=== PATIENT | male | born 1945 | race Caucasian/White ===

== ENCOUNTER → 2022-11-28 | Outpatient (CLI) | payer MEDICARE, OTHER, SELFPAY ==
--- NOTE | 2022-11-28 14:09 | RAD_ITS ---
EXAM: XR LEFT HAND COMPLETE, 3 OR MORE VIEWS CLINICAL INDICATION: Inflammatory polyarthropathy TECHNIQUE: Frontal, lateral and oblique views of the left hand. COMPARISON: No relevant prior studies available. FINDINGS: BONES/JOINTS: No acute fracture or subluxation. Mild narrowing of the interphalangeal joints. Moderate narrowing of the third MCP joint. Prominent narrowing of the navicular multinodular joint. Small periarticular erosions noted to involve the proximal portion of the second metacarpal, radial styloid process and several carpal bones. SOFT TISSUES: Normal. No soft tissue swelling or gas. No radiopaque foreign body. RAD/Hand Min 3 Views IMPRESSION: Arthritic changes as described some of which may be inflammatory in nature. Electronically Signed: Saurabh Miles MD at 16:54 EDT ,
--- NOTE | 2022-11-28 14:09 | RAD_ITS ---
EXAM: XR RIGHT SHOULDER COMPLETE, 2 OR MORE VIEWS CLINICAL INDICATION: Inflammatory polyarthropathy TECHNIQUE: Two or more views of the right shoulder. COMPARISON: No relevant prior studies available. FINDINGS: BONES/JOINTS: Pseudoarticulation of the humerus with the undersurface of the acromion. 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 No definite erosive changes are identified. Degenerative changes in the spine. No acute fracture. No subluxation. Normal alignment. No sclerotic or destructive changes observed. SOFT TISSUES: No significant abnormality. No soft tissue swelling or gas. No radiopaque foreign body. RAD/Shoulder min 2 Views IMPRESSION: 1. Likely chronic rotator cuff tendon tear. 2. 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 No definite erosive changes are identified. Electronically Signed: Jayson Cano DO at 23:22 EDT ,
--- NOTE | 2022-11-28 14:09 | RAD_ITS ---
EXAM: XR LEFT SHOULDER COMPLETE, 2 OR MORE VIEWS CLINICAL INDICATION: Inflammatory polyarthropathy TECHNIQUE: Two or more views of the left shoulder. COMPARISON: No relevant prior studies available. FINDINGS: BONES/JOINTS: The glenoid appears to sit articulating with the undersurface of the acromion. 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 Possible subacromial erosions and possible glenoid erosions. Hypertrophic changes at the margins of the humeral head articular surface and at the acromioclavicular joint and glenoid. Degenerative changes partially visualized in the spine. No acute fracture. No subluxation. Normal alignment. SOFT TISSUES: No significant abnormality. No soft tissue swelling or gas. No radiopaque foreign body. RAD/Shoulder min 2 Views IMPRESSION: 1. Likely chronic rotator cuff tendon tear. 2. Predominantly proliferative degenerative changes. Possible erosions versus subcortical cysts. Electronically Signed: Jayson Cano DO at 22:06 EDT ,
--- NOTE | 2022-11-28 14:18 | RAD_ITS ---
EXAM: XR RIGHT HAND COMPLETE, 3 OR MORE VIEWS CLINICAL INDICATION: Inflammatory polyarthropathy TECHNIQUE: Frontal, lateral and oblique views of the right hand. COMPARISON: No relevant prior studies available. FINDINGS: BONES/JOINTS: There is no evidence of an acute fracture or dislocation. Diffuse carpometacarpal, metacarpophalangeal, and interphalangeal joint arthrosis, worse at the third metacarpophalangeal joint where there is osseous proliferative changes and significant joint space narrowing. Moderate degenerative changes at the radial aspect of the carpus and at the distal radioulnar joint. No distinct erosive changes are identified. No sclerotic or destructive changes observed. SOFT TISSUES: No significant abnormality. No soft tissue swelling or gas. No radiopaque foreign body. RAD/Hand Min 3 Views IMPRESSION: Extensive arthritic changes worse at the basal joint of the thumb and at the third metacarpophalangeal joint. No definite erosive changes. Electronically Signed: Jayson Cano DO at 21:52 EDT ,
[2022-11-28 15:24] LABS: Absolute Lymphocyte Count 1.79 X10^3/uL (0.83-4.51); Absolute Neutrophil Count 4.8 X10^3/uL (2.0-7.7); Basophil# 0.03 X10^3/uL; Basophil% 0.4 % (0-1); Eosinophil# 0.23 X10^3/uL; Eosinophils% 3.1 % (0-5); Hematocrit 43.4 % (40-54); Hemoglobin 14.5 g/dL (13.0-16.5); Lymphocyte # 1.79 X10^3/ul (0.83-4.51); Lymphocyte % 24.4 % (19-41); Mean Corp Hgb Conc 33.4 g/dL (32-36); Mean Corpuscular Volume 101.6 fL (80-94); Mean Platelet Vol. 10.1 fl (6.2-12.0); Monocyte# 0.48 X10^3/uL; Monocyte% 6.5 % (0-10); NRBC Flagged by Analyzer 0 % (0-5); Neutrophil # 4.79 X10^3/uL (2.7-7.7); Neutrophil % 65.5 % (47-70); Platelet Count 202 K/mm3 (150-450); RBC Distribution Width CV 14.2 % (11.6-14.6); RBC Distribution Width SD 53.4 fl (35.1-43.9); Red Blood Count 4.27 M/mm3 (4.6-6.2); White Blood Count 7.3 K/mm3 (4.4-11.0)
[2022-11-28 15:37] LABS: Erythrocyte Sedimentation Rate 43 mm/hr (0-20)
[2022-11-28 16:06] LABS: CRP < 2.90 mg/L (0.0-3.0)
[2022-11-28 16:46] LABS: Hepatitis B Surface Antibody Non-Reactive; Hepatitis B Surface Antigen Non-Reactive (Nonreactive); Hepatitis C Antibody Non-Reactive (Nonreactive)
[2022-11-29 14:03] LABS: ALB/GLOB Ratio 0.8 RATIO (0.9-2.4); AST(SGOT) 25 U/L (15-37); Alanine Aminotransfer ALT/SGPT 23 U/L (16-61); Albumin, Serum 3.5 g/dL (3.2-5.0); Alkaline Phosphatase 73 U/L (45-117); Anion Gap 7 (5-15); BUN 16 mg/dL (7-18); BUN/Creat Ratio 19.3 RATIO (10-20); Calcium,Total 9.1 mg/dL (8.5-10.1); Chloride 105 mmol/L (98-107); Creatinine, Serum 0.83 mg/dL (0.70-1.30); EST Glomerular Filtration Rate 96 mL/min (>60); Est Glom Filt Rate - Afr Amer 116 mL/min (>60); Globulin 4.2 g/dL (2.2-4.2); Glucose 92 mg/dL (74-106); Potassium 4.1 mmol/L (3.5-5.1); Protein, Total 7.7 g/dL (6.4-8.2); Sodium Level 139 mmol/L (136-145)
[2022-11-30 12:08] LABS: CCP IgG Antibodies 28 units (0-19)
[2022-11-30 13:07] LABS: ANTINUCLEAR ANTIBODIES DIRECT Negative (Negative)
== END | disposition home or self-care (01) ==
PROVIDERS: PCP Nurse Practitioner Adult Health; Referring Provider Internal Medicine Rheumatology; Visit Provider Internal Medicine Rheumatology
DX: M06.4 Inflammatory polyarthropathy (principal); M79.7 Fibromyalgia
CPT/HCPCS: 36415; 73030; 73130; 80053; 85025; 85652; 86038; 86140; 86200; 86431; 86706; 86803; 87340

== ENCOUNTER → 2023-02-11 | Outpatient (CLI) | payer MEDICARE, OTHER, SELFPAY ==
[2023-02-11 15:45] LABS: Absolute Lymphocyte Count 1.83 X10^3/uL (0.83-4.51); Absolute Neutrophil Count 5.3 X10^3/uL (2.0-7.7); Basophil# 0.04 X10^3/uL; Basophil% 0.5 % (0-1); Eosinophils% 3.8 % (0-5); Hematocrit 43.2 % (40-54); Hemoglobin 13.8 g/dL (13.0-16.5); Lymphocyte # 1.83 X10^3/ul (0.83-4.51); Mean Corp Hgb Conc 31.9 g/dL (32-36); Mean Corpuscular Hgb 33.9 pg (27.0-32.0); Mean Corpuscular Volume 106.1 fL (80-94); Mean Platelet Vol. 10.9 fl (6.2-12.0); Monocyte# 0.51 X10^3/uL; Monocyte% 6.4 % (0-10); NRBC Flagged by Analyzer 0 % (0-5); Neutrophil # 5.25 X10^3/uL (2.7-7.7); Platelet Count 203 K/mm3 (150-450); RBC Distribution Width CV 14.9 % (11.6-14.6); RBC Distribution Width SD 58.4 fl (35.1-43.9); Red Blood Count 4.07 M/mm3 (4.6-6.2)
[2023-02-11 16:10] LABS: ALB/GLOB Ratio 0.7 RATIO (0.9-2.4); AST(SGOT) 28 U/L (15-37); Alanine Aminotransfer ALT/SGPT 21 U/L (16-61); Albumin, Serum 3.2 g/dL (3.2-5.0); Alkaline Phosphatase 82 U/L (45-117); Anion Gap 3 (5-15); BUN 21 mg/dL (7-18); Calcium,Total 9.3 mg/dL (8.5-10.1); Chloride 104 mmol/L (98-107); Creatinine, Serum 0.95 mg/dL (0.70-1.30); EST Glomerular Filtration Rate 81 mL/min (>60); Est Glom Filt Rate - Afr Amer 99 mL/min (>60); Globulin 4.3 g/dL (2.2-4.2); Glucose 94 mg/dL (74-106); Potassium 4.1 mmol/L (3.5-5.1); Protein, Total 7.5 g/dL (6.4-8.2); Sodium Level 140 mmol/L (136-145)
== END | disposition home or self-care (01) ==
PROVIDERS: PCP Nurse Practitioner Adult Health; Referring Provider Internal Medicine Rheumatology; Visit Provider Internal Medicine Rheumatology
DX: M05.79 Rheumatoid arthritis with rheumatoid factor of multiple sites without organ or systems involvement (principal); M79.7 Fibromyalgia; Z79.899 Other long term (current) drug therapy
CPT/HCPCS: 36415; 80053; 85025

== ENCOUNTER → 2023-04-04 | Outpatient (CLI) | payer MEDICARE, OTHER, SELFPAY ==
--- OUTSIDE RECORDS SUMMARY | 2023-04-04 11:50 | XMS RPT_ITS | CCD ---
Author Name Unknown Address [address] [place] [address] Organization [facility] Care Team Providers Care Applications Packager Name Role Phone Erica Saldaña PA-C Unavailable Pablo Penaloza Unavailable Unavailable PROVIDER, UNKNOWN Unavailable Unavailable Destiny Lerner Unavailable Unavailable Robert HOT DIP TINNING SUPERVISOR.Mirella ARAUJO Primary Care Provider Robert HOT DIP TINNING SUPERVISOR.Mirella ARAUJO Primary Care Provider Robert HOT DIP TINNING SUPERVISOR.Mirella ARAUJO Primary Care Provider Jl Jiménez MD Unavailable Nik Kam Unavailable Reuben Cooper Unavailable Hayden Siegel Unavailable Jl Jiménez MD Unavailable [phone] Nik Kam Unavailable Reuben Cooper Unavailable Hayden Siegel Unavailable MIRELLA JONES Primary Care Unavailable MIRELLA JONES M Attending Unavailable GHAZALA JONESE M Primary Care Unavailable GHAZALA JONESE M Referring Unavailable GHAZALA JONESE M Primary Care Unavailable GHAZALA JONESE M Referring Unavailable GHAZALA JONESE M Primary Care Unavailable MIRELLA JONES M Attending Unavailable PROVIDER, UNKNOWN Primary Care Unavailable AARON CHAIDEZ Referring Unavailab le PROVIDER, UNKNOWN Primary Care Unavailable AARON CHAIDEZ Referring Unavailab le MIRELLA JONES Primary Care Unavailable PAM MATTA Referring Unavailable PAM MATTA Attending Unavailable GHAZALA JONESE Warren Primary Care Unavailable MIRELLA JONES Primary Care Unavailable ROBERT MIRELLA Warren Primary Care Unavailable AARON CHAIDEZ Referring Unavailab YUDI Garcia Attending Unavailable MIRELLA JONES Primary Care Unavailable AARON CHAIDEZ Referring Unavailab MIRELLA Tesfaye Primary Care Unavailable AARON CHAIDEZ Attending Unavailab MIRELLA Tesfaye Referring Unavailable Medications Current Medications Medication Drug Class(es) Dates Sig (Normalized) Sig (Original) perflutren lipid microspheres 1.3 mL in NaCl (PF) 0.9% 10 mL injection (DEFINITY) (4 sources) Start: 10-24-2022 End: 01-23-2024 perflutren lipid microspheres 1.3 mL in NaCl (PF) 0.9% 10 mL injection (DEFINITY) 125 ml sodium chloride 9 mg/ml prefilled syringe (4 sources) Start: 10-24-2022 End: 01-23-2024 sodium chloride 0.9 % (flush) 10 mL (BD POSIFLUSH) Completed/Discontinued Medications Medication Drug Class(es) Dates Sig (Normalized) Sig (Original) acetaminophen 325 mg oral tablet (20 sources) take 1-2 tablets by mouth every six hours as needed acetaminophen (TYLENOL) 325 mg tablet 1-2 Tablet Every 6 hours as needed Oral PRN 0 Active Problems Active Problems Problem Classification Problem Date Documented Date Episodic/Chronic Allergic reactions (3 sources) Environmental allergy; Translations: [Other allergy status, other than to drugs and biological substances] Episodic Chronic obstructive pulmonary disease and bronchiectasis (3 sources) Mucopurulent chronic bronchitis; Translations: [Chronic obstructive pulmonary disease, unspecified] Onset: 06-26-2022 06-26-2022 Chronic Hyperplasia of prostate (20 sources) Benign prostatic hyperplasia; Translations: [Benign prostatic hyperplasia without lower urinary tract symptoms] Onset: 06-14-2014 Chronic Nonspecific chest pain (9 sources) Chest discomfort; Translations: [Other chest pain] Onset: 11-09-2022 10-24-2022 Episodic Osteoarthritis (20 sources) Osteoarthritis of hip; Translations: [Osteoarthritis] Onset: 10-26-2015 10-26-2015 Chronic Other connective tissue disease (1 source) Presence of left artificial hip joint; Translations: [Presence of left artificial hip joint] Onset: 10-26-2015 10-26-2015 Chronic Other connective tissue disease (20 sources) Fibromyalgia; Translations: [Fibromyalgia] 06-14-2014 Episodic Other lower respiratory disease (7 sources) Dyspnea on exertion; Translations: [Other forms of dyspnea] Onset: 12-07-2022 10-24-2022 Episodic Other lower respiratory disease (2 sources) Other forms of dyspnea; Translations: [MARRERO (dyspnea on exertion)] Onset: 11-09-2022 Episodic Other nervous system disorders (20 sources) Walking difficulty due to lower leg; Translations: [Difficulty in walking, not elsewhere classified] Onset: 09-17-2017 09-17-2017 Chronic Other nutritional; endocrine; and metabolic disorders (20 sources) Morbid obesity; Translations: [Morbid (severe) obesity due to excess calories] Onset: 01-27-2015 01-27-2015 Chronic Other nutritional; endocrine; and metabolic disorders (20 sources) Body mass index 40+ - severely obese; Translations: [Morbid (severe) obesity due to excess calories] Onset: 11-05-2017 11-05-2017 Chronic Other nutritional; endocrine; and metabolic disorders (1 source) Morbid (severe) obesity due to excess calories; Translations: [Morbid obesity with BMI of 40.0-44.9, adult ([facility])] Onset: 06-26-2022 Chronic Other nutritional; endocrine; and metabolic disorders (1 source) Body mass index (BMI) 40.0-44.9, adult; Translations: [Morbid obesity with BMI of 40.0-44.9, adult ([facility])] Onset: 06-26-2022 Chronic Spondylosis; intervertebral disc disorders; other back problems (20 sources) Degeneration of lumbar intervertebral disc; Translations: [Other intervertebral disc degeneration, lumbar region] Onset: 07-20-2014 08-19-2017 Chronic Unclassified (2 sources) Carpal tunnel syndrome, bilateral upper limbs; Translations: [Carpal tunnel syndrome, bilateral upper limbs] Onset: 10-28-2017 Past or Other Problems Problem Classification Problem Date Documented Da te Episodic/Chronic Chronic obstructive pulmonary disease and bronchiectasis (2 sources) Bronchitis; Translations: [Bronchitis, not specified as acute or chronic] Onset: 06-12-2022 Episodic Other connective tissue disease (20 sources) Muscle weakness; Translations: [Muscle weakness (generalized)] Onset: 09-17-2017 09-17-2017 Episodic Other connective tissue disease (20 sources) Abnormal posture; Translations: [Abnormal posture] Onset: 09-17-2017 09-17-2017 Episodic Other lower respiratory disease (1 source) Shortness of breath; Translations: [SOB (shortness of breath)] Onset: 06-26-2022 Episodic Other screening for suspected conditions (not mental disorders or infectious disease) (20 sources) Patient encounter status; Translations: [Encounter for screening for malignant neoplasm of colon] Onset: 11-15-2017 11-15-2017 Episodic Spondylosis; intervertebral disc disorders; other back problems (20 sources) Radiculopathy, cervical region; Translations: [Low back pain] Onset: 07-20-2014 08-19-2017 Episodic Unclassified (1 source) History of operative procedure on knee; Translations: [Presence of artificial knee joint, bilateral] Onset: 10-26-2015 10-26-2015 Episodic Unclassified (1 source) Problem Results Test Name Value Interpretation Reference Range Facil ity Vital Signs Date Time Vital Sign Value Performing Clinician Facility 12-07-2022 10:27-0400 Body height 177.8 cm Yudi Sterling APRN.CNP Work Phone: [facility] 12-07-2022 10:27-0400 Body weight 131.54 kg Yudi Sterling APRN.CNP Work Phone: [facility] 12-07-2022 10:27-0400 Diastolic blood pressure 58 mm[Hg] Yudi Sterling APRN.CNP Work Phone: [facility] 12-07-2022 10:27-0400 Heart rate 59 /min Yudi Sterling APRN.CNP Work Phone: [facility] 12-07-2022 10:27-0400 SaO2% (BldA) [Mass fraction] 97 % Yudi Sterlnig APRN.CNP Work Phone: [facility] 12-07-2022 10:27-0400 Systolic blood pressure 104 mm[Hg] Yudi Sterling APRN.CNP Work Phone: [facility] 10-24-2022 11:10-0400 Body height 174 cm Aaron Chaidez DO Work Phone: [facility] 10-24-2022 11:10-0400 Body weight 133.81 kg Aaron Chaidez DO Work Phone: [facility] 10-24-2022 11:10-0400 Diastolic blood pressure 62 mm[Hg] Aaron Chaidez DO Work Phone: [facility] 10-24-2022 11:10-0400 Heart rate 63 /min Aaron Chaidez DO Work Phone: [facility] 10-24-2022 11:10-0400 SaO2% (BldA) [Mass fraction] 93 % Aaron Chaidez DO Work Phone: [facility] 10-24-2022 11:10-0400 Systolic blood pressure 120 mm[Hg] Aaron Chaidez DO Work Phone: [facility] 06-12-2022 08:41-0400 Body height 177.8 cm Mirella Robert HOT DIP TINNING SUPERVISOR.MALL PLANT CARETAKER Work Phone: [facility] 06-12-2022 08:41-0400 Body temperature 97.5 [degF] Mirella Robert HOT DIP TINNING SUPERVISOR.[employer] PLANT CARETAKER Work Phone: [facility] 06-12-2022 08:41-0400 Body weight 134.26 kg Mirella Robert HOT DIP TINNING SUPERVISOR.[employer] CARETAKER Work Phone: [facility] 06-12-2022 08:41-0400 Diastolic blood pressure 78 mm[Hg] Mirella Robert HOT DIP TINNING SUPERVISOR.[employer] PLANT CARETAKER Work Phone: [facility] 06-12-2022 08:41-0400 Heart rate 73 /min Mirella Robert HOT DIP TINNING SUPERVISOR.[employer] PLANT CARETAKER Work Phone: [facility] 06-12-2022 08:41-0400 Respiratory rate 18 /min Mirella Robert HOT DIP TINNING SUPERVISOR.[employer] CARETAKER Work Phone: [facility] 06-12-2022 08:41-0400 SaO2% (BldA) [Mass fraction] 98 % Mirella Robert HOT DIP TINNING SUPERVISOR.M[employer] PLANT CARETAKER Work Phone: [facility] 06-12-2022 08:41-0400 Systolic blood pressure 122 mm[Hg] Mirella Robert HOT DIP TINNING SUPERVISOR.M[employer] PLANT CARETAKER Work Phone: [facility] 04-03-2022 08:16-0500 Body height 177.8 cm Mirella Robert HOT DIP TINNING SUPERVISOR.[employer] CARETAKER Work Phone: [facility] 04-03-2022 08:16-0500 Body temperature 98.2 [degF] Mirella Robert HOT DIP TINNING SUPERVISOR.M[employer] PLANT CARETAKER Work Phone: [facility] 04-03-2022 08:16-0500 Body weight 135.08 kg Mirella Robert HOT DIP TINNING SUPERVISOR.[employer] PL[employer] CARETAKER Work Phone: [facility] 04-03-2022 08:16-0500 Diastolic blood pressure 80 mm[Hg] Mirella Robert HOT DIP TINNING SUPERVISOR.M[employer] PL[employer] CARETAKER Work Phone: [facility] 04-03-2022 08:16-0500 Heart rate 97 /min Mirella Robert HOT DIP TINNING SUPERVISOR.M[employer] PL[employer] CARETAKER Work Phone: [facility] 04-03-2022 08:16-0500 Respiratory rate 18 /min Mirella Robert HOT DIP TINNING SUPERVISOR.M[employer] PLANT CARETAKER Work Phone: [facility] 04-03-2022 08:16-0500 SaO2% (BldA) [Mass fraction] 98 % Mirella Robert HOT DIP TINNING SUPERVISOR.M[employer] PLANT CARETAKER Work Phone: [facility] 04-03-2022 08:16-0500 Systolic blood pressure 120 mm[Hg] Mirella Robert HOT DIP TINNING SUPERVISOR.M[employer] PLANT CARETAKER Work Phone: [facility] NEGATED: Highlighted [id number] 13:13-0400 BMI (Body Mass Index) 42.48 kg/m2 [facility] Work Phone: NEGATED: Highlighted [id number] 13:13-040 BP Diastolic 71 mm[Hg] [facility] Work Phone: NEGATED: Highlighted [id number] 13:040 BP Systolic 126 mm[Hg] [facility] Work Phone: NEGATED: Highlighted [id number] 13: Height [address] [facility] Work Phone: NEGATED: Highlighted [id number] 13: Height 177.8 cm [facility] Work Phone: NEGATED: Highlighted [id number] 13:040 Pulse (Heart Rate) 71 /min [facility] Work Phone: NEGATED: Highlighted [id number] 13:040 Weight [address] [facility] Work Phone: NEGATED: Highlighted [id number] 13:040 Weight 133.[address] [facility] Work Phone: Encounters Encounter Date Encounter Type Care Provider Facility Start: 01-11-2023 Telephone encounter Keyur Manning RN Cardiology Start: 01-08-2023 Telephone encounter Aaron Chaidez DO Work Phone: Cardiology Procedures Date Procedure Procedure Detail Performing Clinician Start: 11-23-2022 Echo tthrc r-t 2d w/wom-mode compl spec&colr d Aaron Chaidez DO Work Phone: Start: 11-09-2022 Myocardial spect mul tiple studies Aaron Chaidez DO Work Phone: Start: 06-26-2022 Radiologic exam ches t 2 views Pam Matta MD Work Phone: Start: 12-07-2020 Adult depression screening assessment Mirella Jones APRN.[employer] PL[employer] CARETAKER Work Phone: Start: 10-29-2019 [object Object] Plan of Treatment Date Care Activity Detail Author Start: 12-27-2027 Colonoscopy COLONOSCOPY [facility] Start: 12-27-2027 COLORECTAL CANCER SCREENING COLORECTAL CANCER SCREENING [facility] Start: 04-24-2027 LIPID SCREEN LIPID SCREEN [facility] Start: 12-21-2025 LIPID SCREEN LIPID SCREEN [facility] Start: 04-24-2025 DIABETES SCREEN DIABETES SCREEN [facility] Start: 04-24-2025 Diabetes Screening Diabetes Screenin g [facility] Start: 12-03-2024 Urine microalbumin profile [facility] Start: 12-22-2023 DIABETES SCREEN DIABETES SCREEN [facility] Start: 11-09-2022 Influenza vaccination [facility] Start: 09-07-2022 Influenza vaccination INFLUENZA (#1) [facility] Immunizations Immunization Date Immunization Notes Care Provider Eliana brery 02-19-2018 influenza virus vaccine, unspecified formulation Echocardiogram Ann Work Phone: [facility] 12-23-2014 pneumococcal polysaccharide vaccine, 23 valent Mirella Robert HOT DIP TINNING SUPERVISOR.[employer] CARETAKER Work Phone: [facility] 12-03-2014 pneumococcal conjuga te vaccine, 13 valent Mirella Robert HOT DIP TINNING SUPERVISOR.M[employer] PL[employer] CARETAKER Work Phone: [facility] 12-03-2014 tetanus toxoid, reduced diphtheria toxoid, and acellular pertussis vaccine, adsorbed Mirella Jones HOT DIP TINNING SUPERVISOR.M[employer] PLANT CARETAKER Work Phone: [facility] 02-17-2014 tetanus and diphther ia toxoids, adsorbed, preservative free, for adult use (2 Lf of tetanus toxoid and 2 Lf of diphtheria toxoid) Mirella Jones HOT DIP TINNING SUPERVISOR.MALL PLANT CARETAKER Work Phone: [facility] 03-11-2008 influenza, seasonal, injectable Mirella Robert HOT DIP TINNING SUPERVISOR.M[employer] PL[employer] CARETAKER Work Phone: [facility] 03-11-1998 tetanus and diphther ia toxoids, adsorbed, preservative free, for adult use (2 Lf of tetanus toxoid and 2 Lf of diphtheria toxoid) Mirella Jones HOT DIP TINNING SUPERVISOR.MALL PLANT CARETAKER Work Phone: [facility] No information available. Neli Servin [facility] [place] [facility] Work Phone: Payers Date Payer Category Payer Private Health Insurance [facility] AARP SUPPLEMENT [id number] 2011-Present [phone] [address] [place] [address] Indemnity [id number] 2011 Private Health Insurance [facility] AARP SUPPLEMENT [id number] 2011-Present [phone] [address] [place] [address] Indemnity [id number] 2011 Unknown [id number] 2011 Medicare 2011 Medicare MEDICARE MEDICAR E A AND B [id number] 2011-Present [phone] [address] [address] [place] [address] Medicare [id number] 2011 Medicare [id number] Social History Date Type Detail Facility Start: 08-21-2017 End: 08-21-2017 Assertion Unknown if ever smoked [facility] Work Phone: Start: 06-14-2014 End: 06-26-2022 Tobacco smoking status NHIS Never smoked tobacco [facility] Start: 06-14-2014 End: 06-26-2022 Tobacco use and exposure Smokeless tobacco non-user [facility] Start: 01-04-2021 End: 06-26-2022 Alcohol intake Current non-drinker of alcohol (finding) [facility] Start: 1945 Sex Assigned At Not on file [facility] Start: 04-03-2022 History SDOH Alcohol Frequency 1 [facility] Start: 04-03-2022 History SDOH Alcohol Std Drinks 0 [facility] Start: 04-03-2022 History SDOH Social Connections Phone 5 [facility] Start: 04-03-2022 History SDOH Social Connections Islam 3 [facility] Start: 04-03-2022 History SDOH Social Connections Living 7 [facility] Start: 04-03-2022 History SDOH Transport Med 2 [facility] Start: 04-03-2022 End: 06-26-2022 History of Social function [facility] Start: 04-03-2022 End: 06-26-2022 Social connection and isolation panel [facility] Do you belong to any clubs or organizations such as temple groups, unions, fraternal or athletic groups, or school groups? Yes [facility] Are you now , , , , never or living with a partner? Never [facility] How often to you hav e a drink containing alcohol? Never [facility] How many standard dr inks containing alcohol do you have on a typical day? Patient does not drink [facility] Do you feel stress - tense, restless, nervous, or anxious, or unable to sleep at night because your mind is troubled all the time - these days [OSQ] Not at all [facility] (I/We) worried wheth er (my/our) food would run out before (I/we) got money to buy more. Never true [facility] In the past 12 month s, was there a time when you were not able to pay the mortgage or rent on time? No [facility] Start: 06-26-2022 Tobacco Comment Second hand smoke [facility] Medical Equipment Procedure Code Equipment Code Equipment Origin al Text Equipment Identifier Dates Patch Srg Vntrlx St 3.2in [facility] - [id number] Start: 02-01-2015 Clinical Notes 01-27-2015 to 01-11-2023 Telephone Encounter - Keyur Manning RN - 01/11/2023 2:37 PM EDTTelephone Encounter - Keyur Manning RN - 01/08/2023 1:04 PM EDTTelephone Encounter - Franky Cardona RN - 01/08/2023 10:44 AM EDT Note Date & Type Note Facility 01-11-2023 Miscellaneous Notes See TE message from 01/08/23 documented in this encounter [facility] 01-08-2023 Miscellaneous Notes Called PT about No sustained arrhythmia. This is good news. Average HR of 70 with some PVC's and PAC's. These are benign and not causing any issues. No changes to plan of care. Follow up as scheduled. Mylene Feliz APRN.[employer] PL[employer] CARETAKER Pt states he understands No sustained arrhythmia. This is good news. Average HR of 70 with some PVC's and PAC's. These are benign and not causing any issues. No changes to plan of care. Follow up as scheduled. Mylene Feliz APRN.CNP Pt called left VM asking about results of Zio monitor and what to do next [facility] Cardiac Outpatient Recording/Telemetry [ID [id number]] MIMI 12/07/22 Asher JENKINS 05/14/23 Dr. Olvera documented in this encounter [facility] 12-07-2022 Note HNO ID: [id number] Author: Yudi Sterling APRN.CNP Service: ? Author Type: Nurse Practitioner Type: Progress Notes Filed: 12/07/2022 1:48 PM Note Text: [facility] [place] [facility] Department of Cardiovascular Medicine SECTION OF CLINICAL CARDIOLOGY OUTPATIENT VISIT DATE December 07, 2022 OUTPATIENT VISIT TYPE ESTABLISHED PRIMARY CARE PHYSICIAN: Mirella Jones [address] [place] [id number] REFERRING PHYSICIAN: Aaron Chaidez [address] [facility] [id number] CHIEF COMPLAINT: Follow Up (Denies cardiac concerns) HISTORY OF PRESENT ILLNESS: Mr. Del Rosario is a 77 year old male with PMh of obesity, fibromyalgia who presents today with his niece for a cardiovascular medicine follow-up visit after he was seen by Dr Chaidez for MARRERO and mild chest pressure only at night when he lays down. Had stress and echo ordered which he did. We are going over results today. BP 120/50-60 at home. Today's is low. He did take his meds this am. States he normally has a snack of apples or other fruit prior to bed at 9pm. They state he is very concerned about atrial fibrillation as many of his family members have it. Cannot tell if he has any fast heart rate but wonders if the evening pressure is related to possible rhythm issues. He denies shortness of breath, chest pain, palpitations, dizziness, lightheadedness, lower extremity edema, PND, orthopnea, presyncope, syncope, or claudication symptoms Subjective PAST MEDICAL HISTORY Diagnosis Date Allergic rhinitis BPH (benign prostatic hyperplasia) Bronchospasm Carpal tunnel syndrome Contact dermatitis due to poison wdayne being treated by Dr. Jeff Contact dermatitis due to poison [place] DVT (deep venous thrombosis) ([facility]) 03/11/1996 L leg unprovoked Fatigue Fibromyalgia Gastroesophageal reflux disease Hiatal hernia Hip pain Hyperlipidemia Knee pain Dr. Cooper; OA Morbid obesity ([facility]) 01/27/2015 Neck pain Osteoarthritis of multiple joints Osteoporosis Peripheral edema Polymyalgia rheumatica ([facility]) Rheumatoid arthritis, adult ([facility]) Sciatica Shoulder joint pain Spasm of back muscles Spondylosis Vitamin D deficiency PAST SURGICAL HISTORY Procedure Laterality Date ARTHRP ACETBLR/PROX FEM PROSTC AGRFT/ALGRFT 1995 left- Left TKR Dr. Cooper; ARTHRP KNE CONDYLEANDPLATU MEDIALANDLAT COMPARTMENTS 2007 right ARTHRP KNE CONDYLEANDPLATU MEDIALANDLAT COMPARTMENTS Left 2011 CARPAL TUNNEL Left 1989 COLONOSCOPY will think about it EXTRACTION ERUPTED TOOTH wisdom teeth PAST SURGICAL HISTORY OF 2012 left knee; right revision REPAIR UMBILICAL HERNIA 02/01/2015 TONSILLECTOMY AND ADENOIDECTOMY TREATMENT OF RETINA Right eye retinal tear repair x3 Dr. Seymour 08/2011 Social History Tobacco Use Smoking status: Never Smokeless tobacco: Never Tobacco comments: Second hand smoke Substance Use Topics Alcohol use: No Drug use: No FAMILY HISTORY Problem Relation Age of Onset Arthritis Mother Hypertension Mother other (a fib) Mother other (CVA) Mother other (OA) Mother other (CAD) Father other (valve disorder) Father Arthritis Sister other (sleep apnea problems) Sister other (sleep apnea problems) Sister Arthritis Brother other (sleep apnea problems) Brother other (sleep apnea problems) Brother ALLERGIES: ALLERGIES No Known Allergies MEDICATIONS: ipratropium bromide (ATROVENT) 42 mcg (0.06 %) nasal spray USE 2 SPRAYS IN EACH NOSTRIL EVERY MORNING AND NEEDED 4-6 HOURS LATER (FOR RUNNY NOSE) tamsulosin (FLOMAX) 0.4 mg TAKE 1 CAPSULE BY MOUTH EVERY DAY Potassium 99 mg tab Take by mouth. 1 pill bid Cholecalciferol, Vitamin D3, (VITAMIN D-3) 2,000 unit cap Take 1 capsule by mouth once daily. multivitamin tablet 1 tablet(s) by mouth daily Magnesium 250 mg tab Take 250 mg by mouth twice daily. fluticasone (FLONASE) 50 mcg/actuation nasal spray USE 2 SPRAYS INTRANASALLY DAILY IN EACH NOSTRIL AT BEDTIME (Patient not taking: Reported on 12/07/2022) loratadine (CLARITIN) 10 mg tablet TAKE 1 TABLET BY MOUTH EVERY DAY (Patient not taking: Reported on 10/24/2022) budesonide-formoterol (SYMBICORT) 160-4.5 mcg/actuation inhaler Inhale 2 Puffs as instructed twice daily. (Patient not taking: Reported on 10/24/2022) albuterol (PROVENTIL) 2.5 mg /3 mL (0.083 %) nebulizer solution TAKE 1 NEBULIZER (INHALATION) EVERY 4-6 HOURS NEEDED FOR 99 DAYS 1 BOX (Patient not taking: Reported on 10/24/2022) albuterol HFA (PROVENTIL HFA, VENTOLIN HFA) 90 mcg/actuation inhaler TAKE 2 EACH (INHALATION) EVERY 4-6 HOURS NEEDED - WHEEZING FOR 99 DAYS (Patient not taking: Reported on 10/24/2022) ipratropium-albuterol (DUONEB) 0.5 mg-3 mg(2.5 mg base)/3 mL nebu PLEASE SEE ATTACHED FOR DETAILED DIRECTIONS (Patient not taking: Reported on 10/24/2022) acetaminophen (TYLENOL) 325 mg tablet (more content not included)... [facility] 12-07-2022 Note HNO ID: [id number] Author: Mariel Evans MD Service: ? Author Type: Physician Type: Procedures Filed: 12/28/2022 3:44 PM Note Text: Monitor Report I reviewed the available rhythm strips The underlying rhythm was sinus rhythm with Average HR of 70 bpm The maximum heart rate recorded in SR was 122 bpm The minimum heart rate recorded was 48 bpm 24 short runs of narrow complex tachycardia likely atrial tachycardia and the longest run lasted for 9 beats Otherwise rare PACs and PVCs Mariel Evans MD Patient Name: Vicente Del Rosario : 1945 Ordering Provider: Yudi Sterling Indication: R06.09 Other forms of dyspnea Type of Monitor: Extended Monitoring-Zio Patch Enrollment Dates: 12/07/2022-12/21/2022 [facility] 12-07-2022 Instructions Yudi Sterling APRN.CNP - 12/07/2022 11:09 AM EDT PLAN AND RECOMMENDATIONS: Anti reflux measures discussed Continue compression stockings Follow up Dr Wade Lugo monitor CONTACT INFORMATION: Yudi Sterling APRN.CNP Cardiology Nurse Practitioner Section of Regional Cardiology [facility] Dept of Cardiovascular Medicine [facility] Heart [facility] V[facility] [place] [address] Office Office documented in this encounter [facility] 12-07-2022 History of Presen t illness Narrative Images from the original note were not included. [facility] [place] [facility] Department of Cardiovascular Medicine SECTION OF CLINICAL CARDIOLOGY OUTPATIENT VISIT DATE December 07, 2022 OUTPATIENT VISIT TYPE ESTABLISHED PRIMARY CARE PHYSICIAN: Mirella Jones [address] [place] [address] REFERRING PHYSICIAN: Aaron Chaidez [address] [place] [address] CHIEF COMPLAINT: Follow Up (Denies cardiac concerns) HISTORY OF PRESENT ILLNESS: Mr. Del Rosario is a 77 year old male with PMh of obesity, fibromyalgia who presents today with his niece for a cardiovascular medicine follow-up visit after he was seen by Dr Chaidez for MARRERO and mild chest pressure only at night when he lays down. Had stress and echo ordered which he did. We are going over results today. BP 120/50-60 at home. Today's is low. He did take his meds this am. States he normally has a snack of apples or other fruit prior to bed at 9pm. They state he is very concerned about atrial fibrillation as many of his family members have it. Cannot tell if he has any fast heart rate but wonders if the evening pressure is related to possible rhythm issues. He denies shortness of breath, chest pain, palpitations, dizziness, lightheadedness, lower extremity edema, PND, orthopnea, presyncope, syncope, or claudication symptoms Subjective PAST MEDICAL HISTORY Diagnosis Date Allergic rhinitis BPH (benign prostatic hyperplasia) Bronchospasm Carpal tunnel syndrome Contact dermatitis due to poison dwayne being treated by Dr. Jeff Contact dermatitis due to poison oak DVT (deep venous thrombosis) ([facility]) 03/11/1996 L leg unprovoked Fatigue Fibromyalgia Gastroesophageal reflux disease Hiatal hernia Hip pain Hyperlipidemia Knee pain Dr. Cooper; OA Morbid obesity ([facility]) 01/27/2015 Neck pain Osteoarthritis of multiple joints Osteoporosis Peripheral edema Polymyalgia rheumatica ([facility]) Rheumatoid arthritis, adult ([facility]) Sciatica Shoulder joint pain Spasm of back muscles Spondylosis Vitamin D deficiency PAST SURGICAL HISTORY Procedure Laterality Date ARTHRP ACETBLR/PROX FEM PROSTC AGRFT/ALGRFT 1995 left- Left TKR Dr. Cooper; ARTHRP KNE CONDYLE&PLATU MEDIAL&LAT COMPARTMENTS 2007 right ARTHRP KNE CONDYLE&PLATU MEDIAL&LAT COMPARTMENTS Left 2011 CARPAL TUNNEL Left 1989 COLONOSCOPY will think about it EXTRACTION ERUPTED TOOTH wisdom teeth PAST SURGICAL HISTORY OF 2012 left knee; right revision REPAIR UMBILICAL HERNIA 02/01/2015 TONSILLECTOMY & ADENOIDECTOMY <AGE 13 TREATMENT OF RETINA Right eye retinal tear repair x3 Dr. Seymour 08/2011 Social History Tobacco Use Smoking status: Never Smokeless tobacco: Never Tobacco comments: Second hand smoke Substance Use Topics Alcohol use: No Drug use: No FAMILY HISTORY Problem Relation Age of Onset Arthritis Mother Hypertension Mother other (a fib) Mother other (CVA) Mother other (OA) Mother other (CAD) Father other (valve disorder) Father Arthritis Sister other (sleep apnea problems) Sister other (sleep apnea problems) Sister Arthritis Brother other (sleep apnea problems) Brother other (sleep apnea problems) Brother ALLERGIES: ALLERGIES No Known Allergies MEDICATIONS: ipratropium bromide (ATROVENT) 42 mcg (0.06 %) nasal spray USE 2 SPRAYS IN EACH NOSTRIL EVERY MORNING AND NEEDED 4-6 HOURS LATER (FOR RUNNY NOSE) tamsulosin (FLOMAX) 0.4 mg TAKE 1 CAPSULE BY MOUTH EVERY DAY Potassium 99 mg tab Take by mouth. 1 pill bid Cholecalciferol, Vitamin D3, (VITAMIN D-3) 2,000 unit cap Take 1 capsule by mouth once daily. multivitamin tablet 1 tablet(s) by mouth daily Magnesium 250 mg tab Take 250 mg by mouth twice daily. fluticasone (FLONASE) 50 mcg/actuation nasal spray USE 2 SPRAYS INTRANASALLY DAILY IN EACH NOSTRIL AT BEDTIME (Patient not taking: Reported on 12/07/2022) loratadine (CLARITIN) 10 mg tablet TAKE 1 TABLET BY MOUTH EVERY DAY (Patient not taking: Reported on 10/24/2022) budesonide-formoterol (SYMBICORT) 160-4.5 mcg/actuation inhaler Inhale 2 Puffs as instructed twice daily. (Patient not taking: Reported on 10/24/2022) albuterol (PROVENTIL) 2.5 mg /3 mL (0.083 %) nebulizer solution TAKE 1 NEBULIZER (INHALATION) EVERY 4-6 HOURS NEEDED FOR 99 DAYS 1 BOX (Patient not taking: Reported on 10/24/2022) albuterol HFA (PROVENTIL HFA, VENTOLIN HFA) 90 mcg/actuation inhaler TAKE 2 EACH (INHALATION) EVERY 4-6 HOURS NEEDED - WHEEZING FOR 99 DAYS (Patient not taking: Reported on 10/24/2022) ipratropium-albuterol (DUONEB) 0.5 mg-3 mg(2.5 mg base)/3 mL nebu PLEASE SEE ATTACHED FOR DETAILED DIRECTIONS (Patient not taking: Reported on 10/24/2022) acetaminophen (TYLENOL) 325 mg tablet 1-2 Tablet Every 6 hours as needed Oral PRN aspirin, enteric coated (ECOTRIN LOW STRENGTH) 81 mg EC tablet Take 1 tablet by mouth once daily. (Patient not taking: Reported on 10/24/2022) REVIEW OF SYSTEMS: CARD: See HPI GENERAL: Negative for: Weight loss or gain, Fever and/or Chills HEENT: Negative for: Headache, Impaired Vision, Glasses, Hearing Impairment, Ringing in Ears, Nosebleeds, Bleeding Gums NECK: Negative for: Swelling, Pain, Stiffness RESPIRATORY: Negative for: Cough, Blood in Sputum, Shortness of breath, Wheezing, Apnea GASTROINTESTINAL: Negative for: Nausea, Vomiting, Diarrhea, Blood in stool, or Dark black stools MUSCULOSKELETAL: Negative for: Muscle or joint pain, Stiffness , Joint swelling NEUROLOGIC: Negative for: focal numbness/weakness, headaches, visual changes, ataxia, speech/language loss HEMATOLOGICAL/LYMPHATIC: Negative for: Easy bruising , Easy bleeding Objective PHYSICAL EXAMINATION: BP 104/58 Pulse (!) 59 Ht 177.8 cm (5' 10 ) Wt 131.5 kg (290 lb) SpO2 97% BMI 41.61 kg/m General: Well appearing, in no acute distress. Skin: No clubbing, no cyanosis. Eyes: Extra ocular movements intact Neck: No jugular venous distention, no carotid bruits, carotids have a normal upstroke. Lungs: Clear to auscultation bilaterally, no wheezing or rhonchi. Heart: Regular rhythm, S1, S2 normal, no murmur. No peripheral edema . Grade 2/4 distal pulses bilaterally. Abdomen: Soft, nontender, bowel sounds normal, no bruits. Neuro: Oriented to person, place and time, alert, cooperative, gait coordinated. CARDIOVASCULAR MEDICINE TESTING: No Cardiovascular testing perfomed today. Last ECHO Result Conclusion ECHO Collected: 11/23/2022 9:49 AM (Final result) Impression: CONCLUSIONS: - Technically difficult exam due to body habitus. - Exam indication: Chest Pain - The left ventricle is normal in size. There is mild left ventricular hypertrophy. Left ventricular systolic function is normal. EF = 55 5% (2D biplane) Definity contrast used for endocardial border detection. Grade I left ventricular diastolic dysfunction. - The right ventricle is normal in size. Right ventricular systolic function is normal. - The left atrial cavity is severely dilated. - Mild (1+) tricuspid valve regurgitation. - Estimated right ventricular systolic pressure is 52 mmHg consistent with moderate pulmonary hypertension. Estimated right atrial pressure is 8 mmHg based on IVC assessment. - The patient has not had a prior CC echocardiographic exam for comparison. * * * Final * * * Last EKG Result Conclusion EKG Collected: 04/24/2022 7:59 AM (Preliminary result) Impression: NORMAL SINUS RHYTHM RIGHT BUNDLE BRANCH BLOCK ABNORMAL ECG WHEN COMPARED WITH ECG OF 03-AUG-2015 09:32, RIGHT BUNDLE BRANCH BLOCK HAS REPLACED NON-SPECIFIC INTRA-VENTRICULAR CONDUCTION DELAY There were no tests performed for review. I personally interviewed, confirmed and edited the above information if obtained by others. Conclusion: (R06.09) MARRERO (dyspnea on exertion) (primary encounter diagnosis) Comment: it appears that there is not a cardiac etiology to his MARRERO. Although he has some PHTN and possible ARRON though he states he was told no ARRON Plan: OUTSIDE VENDOR CARDIAC OUTPATIENT EXTENDED RHYTHM RECORDING (WITHOUT TELEMETRY) (R07.89) Other chest pain Comment: atypical chest; appears to be more like GI issue, maybe GERD Plan: anti GERD measures discussed. Follow up Dr Chaidez 6 months PLAN AND RECOMMENDATIONS: Anti reflux measures discussed Continue compression stockings Follow up Dr Olvera CONTACT INFORMATION: Yudi Sterling APRN.CNP Cardiology Nurse Practitioner Section of Regional Cardiology [facility] Dept of Cardiovascular Medicine [facility] Heart and V[facility] [place] [address] [place] [address] Office Office documented in this encounter [facility] 11-23-2022 Nurse Note #24 IV left arm one attempt for definity echo. PT tolersted well IV was removed documented in this encounter [facility] 11-09-2022 Note HNO ID: [id number] Author: Anastasia Clarke CNMT Service: Radiology Author Type: Technologist Type: Progress Notes Filed: 11/09/2022 1:08 PM Note Text: RADIOLOGY SERVICE PROGRESS NOTE SERVICE DATE: 11/09/2022 SERVICE TIME: 1:07 PM PATIENT IDENTITY VERIFICATION COMPLETED USING TWO (2) STANDARD IDENTIFIERS: Name and Date of confirmed by patient verbally and Name and Date of confirmed by identification band FALL SCREENING: Has the patient had 2 falls in the last year or 1 fall with injury or currently using an Ambulatory Assistive Device (Walker, Cane, Wheelchair, Crutches, etc.)? Yes, Patient High Risk for Falls What interventions were put in place to prevent falls during this visit? [place] Risk Wristband Applied, Offered Assistance with Transfers/Clothing, and Increased Observations by Caregivers PATIENT GENDER DATA: .male ALLERGIES: Reviewed and unchanged MEDICATIONS REVIEWED: Not applicable PATIENT RELEVANT IMPLANT DATA REVIEWED: Not Applicable CREATININE: Creatinine Date Value Ref Range Status 04/24/2022 0.86 0.73 - 1.22 mg/dL Final 12/21/2020 0.80 0.73 - 1.22 mg/dL Final 10/28/2019 0.73 0.73 - 1.22 mg/dL Final Estimated Glomerular Filtration Rate Date Value Ref Range Status 04/24/2022 90 >=60 mL/min/1.73m? Final Comment: Estimated Glomerular Filtration Rate (eGFR) is calculated using the 2020 CKD-EPI creatinine equation. This equation utilizes serum creatinine, sex, and age as parameters. The creatinine assay has traceable calibration to isotope dilution-mass spectrometry. Refer to KDIGO guidelines for clinical interpretation. In patients with unstable renal function, e.g. those with acute kidney injury, the eGFR may not accurately reflect actual GFR. eGFR- Date Value Ref Range Status 12/21/2020 >60 Final P.O.C.T. RESULTS: N/A November 09, [address] PERFORMED: No IV SITE: Ambulatory: A peripheral IV was started in the Right antecubital site with a Angio cath: 22 gauge. POST EXAM PIV STATUS: Discontinued PROCEDURE TYPE: NM Stress: 15.3 mCi [id number] was administered IV for Rest Imaging at 12:03 by mm. 48.2 mCi [id number] was administered IV for Stress Imaging at 12:56 by mm. PATIENT DISCHARGED TO: Ambulatory patient, left NM department area. A Diagnostic radioactive procedure has taken place, with no further precautions necessary other than routine body substance precautions. More information regarding radiation safety can be found using this link: [email or web address] [email or web address] SIGNATURE: JOSIANE Herrera PATIENT NAME: Vicente Del Rosario DATE: November 09, 2022 TIME: 1:07 PM PAGER/CONTACT #: [facility] 11-09-2022 History of Presen t illness Narrative RADIOLOGY SERVICE PROGRESS NOTE SERVICE DATE: 11/09/2022 SERVICE TIME: 1:07 PM PATIENT IDENTITY VERIFICATION COMPLETED USING TWO (2) STANDARD IDENTIFIERS: Name and Date of confirmed by patient verbally and Name and Date of confirmed by identification band FALL SCREENING: Has the patient had 2 falls in the last year or 1 fall with injury or currently using an Ambulatory Assistive Device (Walker, Cane, Wheelchair, Crutches, etc.)? Yes, Patient High Risk for Falls What interventions were put in place to prevent falls during this visit? [place] Risk Wristband Applied, Offered Assistance with Transfers/Clothing, and Increased Observations by Caregivers PATIENT GENDER DATA: .male ALLERGIES: Reviewed and unchanged MEDICATIONS REVIEWED: Not applicable PATIENT RELEVANT IMPLANT DATA REVIEWED: Not Applicable CREATININE: Creatinine Date Value Ref Range Status 04/24/2022 0.86 0.73 - 1.22 mg/dL Final 12/21/2020 0.80 0.73 - 1.22 mg/dL Final 10/28/2019 0.73 0.73 - 1.22 mg/dL Final Estimated Glomerular Filtration Rate Date Value Ref Range Status 04/24/2022 90 >=60 mL/min/1.73m Final Comment: Estimated Glomerular Filtration Rate (eGFR) is calculated using the 2020 CKD-EPI creatinine equation. This equation utilizes serum creatinine, sex, and age as parameters. The creatinine assay has traceable calibration to isotope dilution-mass spectrometry. Refer to KDIGO guidelines for clinical interpretation. In patients with unstable renal function, e.g. those with acute kidney injury, the eGFR may not accurately reflect actual GFR. eGFR- Date Value Ref Range Status 12/21/2020 >60 Final P.O.C.T. RESULTS: N/A November 09, [address] PERFORMED: No IV SITE: Ambulatory: A peripheral IV was started in the Right antecubital site with a Angio cath: 22 gauge. POST EXAM PIV STATUS: Discontinued PROCEDURE TYPE: NM Stress: 15.3 mCi [id number] was administered IV for Rest Imaging at 12:03 by mm. 48.2 mCi [id number]-[id number] was administered IV for Stress Imaging at 12:56 by mm. PATIENT DISCHARGED TO: Ambulatory patient, left NM department area. A Diagnostic radioactive procedure has taken place, with no further precautions necessary other than routine body substance precautions. More information regarding radiation safety can be found using this link: [email or web address] [email or web address] df SIGNATURE: JOSIANE Herrera PATIENT NAME: Vicente Del Rosario DATE: November 09, 2022 TIME: 1:07 PM PAGER/CONTACT #: documented in this encounter [facility] 11-08-2022 Miscellaneous Notes Spoke with patient regarding reminder for stress test tomorrow and given instructions. documented in this encounter [facility] 10-24-2022 Note HNO ID: [id number] Author: Aaron Chaidez, DO Service: ? Author Type: Physician Type: Progress Notes Filed: 10/24/2022 4:39 PM Note Text: [facility] SECTION OF REGIONAL CARDIOLOGY [facility] OUTPATIENT VISIT DATE October 24, 2022 PRIMARY CARE PHYSICIAN: Mirella Jones [address] [place] [address] HISTORY OF PRESENT ILLNESS: Mr. Del Rosario is a 77 year old male. The patient presents as part of a screening for cardiovascular disease as a result of increasing dyspnea occurring with exertion abating with rest with at times associated substernal chest pressure without radiation. This has been occurring pretty regularly over the past several weeks to months. His niece accompanies him today. He denies orthopnea, paroxysmal nocturnal dyspnea, palpitations, near-syncope or syncope. He was recently noted to have a change in his EKG with the development of a right bundle branch block pattern but previously had an interventricular conduction delay. The patient has never been and has no children. 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 Cardiac risk factors: Age, gender Impression: 1. Dyspnea on exertion 2. Chest discomfort 3. Abnormal EKG 4. Screening for cardiovascular disease PLAN AND RECOMMENDATIONS: We will have the patient undergo nuclear stress imaging with Lexiscan due to relative inability to ambulate. We will also perform an echocardiogram to evaluate heart structure and function. We will follow-up with him in a few weeks time regardless. Should testing be negative, we would recommend looking to other noncardiac conditions such as pulmonary disease. Furthermore, in the absence of findings of the latter and continued symptoms, we would then consider further cardiac evaluation as well. We discussed this with he and his niece in detail. Dietary and lifestyle medication was reemphasized to facilitate risk factor reduction. Vitals: BP 120/62 Pulse 63 Ht 174 cm (5' 8.5 ) Wt 133.8 kg (295 lb) SpO2 93% BMI 44.20 kg/m? Physical Exam Vitals reviewed. Constitutional: General: He is not in acute distress. Appearance: Normal appearance. He is well-developed. He is not diaphoretic. HENT: Head: Normocephalic and atraumatic. Right Ear: External ear normal. Left Ear: External ear normal. Nose: Nose normal. Eyes: General: No scleral icterus. Right eye: No discharge. Left eye: No discharge. Pupils: Pupils are equal, round, and reactive to light. Neck: Thyroid: No thyromegaly. Vascular: No carotid bruit or JVD. Cardiovascular: Rate and Rhythm: Normal rate and regular rhythm. Heart sounds: No murmur heard. No friction rub. No gallop. Pulmonary: Effort: Pulmonary effort is normal. No respiratory distress. Breath sounds: Normal breath sounds. No wheezing or rales. Abdominal: General: Bowel sounds are normal. Palpations: Abdomen is soft. Musculoskeletal: General: Normal range of motion. Cervical back: Neck supple. Skin: General: Skin is warm and dry. Capillary Refill: Capillary refill takes less than 2 seconds. Coloration: Skin is not pale. Neurological: Mental Status: He is alert and oriented to person, place, and time. Cranial Nerves: No cranial nerve deficit. Psychiatric: Mood and Affect: Mood normal. Mood is not anxious or depressed. Behavior: Behavior normal. Thought Content: Thought content normal. Judgment: Judgment normal. Review of Systems Constitutional: Negative for activity change, appetite change, fatigue and unexpected weight change. HENT: Negative for ear pain and trouble swallowing. Eyes: Negative for pain and visual disturbance. Respiratory: Positive for shortness of breath. Negative for chest tightness. Cardiovascular: Positive for chest pain. Negative for palpitations and leg swelling. Gastrointestinal: Negative for abdominal pain and blood in stool. Endocrine: Negative for cold intolerance and heat intolerance. Genitourinary: Negative for dysuria, hematuria and scrotal swelling. Musculoskeletal: Positive for arthralgias. Negative for myalgias. Skin: Negative for pallor and rash. Allergic/Immunologic: Negative for immunocompromised state. Neurological: Negative for dizziness, syncope and light-headedness. Hematological: Negative for adenopathy. Does not bruise/bleed easily. Psychiatric/Behavioral: Negative for sleep disturbance. The patient is not nervous/anxious. PAST MEDICAL HISTORY Diagnosis Date Allergic rhinitis BPH (benign prostatic hyperplasia) Bronchospasm Carpal tunnel syndrome Contact dermatitis due to poison dwayne being treated by Dr. Jeff Contact dermatitis due to poison oak DVT (deep venous thrombosis) ([facility]) 03/11/1996 L leg unprovoked Fatigue Fibromyalgia Gastroesophageal reflux disease Hiatal hernia Hip pain Hype (more content not included)... [facility] 10-24-2022 History of Presen t illness Narrative Images from the original note were not included. [facility] SECTION OF REGIONAL CARDIOLOGY [facility] OUTPATIENT VISIT DATE October 24, 2022 PRIMARY CARE PHYSICIAN: Mirella Jones [address] [place] [id number] HISTORY OF PRESENT ILLNESS: Mr. Del Rosario is a 77 year old male. The patient presents as part of a screening for cardiovascular disease as a result of increasing dyspnea occurring with exertion abating with rest with at times associated substernal chest pressure without radiation. This has been occurring pretty regularly over the past several weeks to months. His niece accompanies him today. He denies orthopnea, paroxysmal nocturnal dyspnea, palpitations, near-syncope or syncope. He was recently noted to have a change in his EKG with the development of a right bundle branch block pattern but previously had an interventricular conduction delay. The patient has never been and has no children. 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 Cardiac risk factors: Age, gender Impression: 1. Dyspnea on exertion 2. Chest discomfort 3. Abnormal EKG 4. Screening for cardiovascular disease PLAN AND RECOMMENDATIONS: We will have the patient undergo nuclear stress imaging with Lexiscan due to relative inability to ambulate. We will also perform an echocardiogram to evaluate heart structure and function. We will follow-up with him in a few weeks time regardless. Should testing be negative, we would recommend looking to other noncardiac conditions such as pulmonary disease. Furthermore, in the absence of findings of the latter and continued symptoms, we would then consider further cardiac evaluation as well. We discussed this with he and his niece in detail. Dietary and lifestyle medication was reemphasized to facilitate risk factor reduction. Vitals: BP 120/62 Pulse 63 Ht 174 cm (5' 8.5 ) Wt 133.8 kg (295 lb) SpO2 93% BMI 44.20 kg/m Physical Exam Vitals reviewed. Constitutional: General: He is not in acute distress. Appearance: Normal appearance. He is well-developed. He is not diaphoretic. HENT: Head: Normocephalic and atraumatic. Right Ear: External ear normal. Left Ear: External ear normal. Nose: Nose normal. Eyes: General: No scleral icterus. Right eye: No discharge. Left eye: No discharge. Pupils: Pupils are equal, round, and reactive to light. Neck: Thyroid: No thyromegaly. Vascular: No carotid bruit or JVD. Cardiovascular: Rate and Rhythm: Normal rate and regular rhythm. Heart sounds: No murmur heard. No friction rub. No gallop. Pulmonary: Effort: Pulmonary effort is normal. No respiratory distress. Breath sounds: Normal breath sounds. No wheezing or rales. Abdominal: General: Bowel sounds are normal. Palpations: Abdomen is soft. Musculoskeletal: General: Normal range of motion. Cervical back: Neck supple. Skin: General: Skin is warm and dry. Capillary Refill: Capillary refill takes less than 2 seconds. Coloration: Skin is not pale. Neurological: Mental Status: He is alert and oriented to person, place, and time. Cranial Nerves: No cranial nerve deficit. Psychiatric: Mood and Affect: Mood normal. Mood is not anxious or depressed. Behavior: Behavior normal. Thought Content: Thought content normal. Judgment: Judgment normal. Review of Systems Constitutional: Negative for activity change, appetite change, fatigue and unexpected weight change. HENT: Negative for ear pain and trouble swallowing. Eyes: Negative for pain and visual disturbance. Respiratory: Positive for shortness of breath. Negative for chest tightness. Cardiovascular: Positive for chest pain. Negative for palpitations and leg swelling. Gastrointestinal: Negative for abdominal pain and blood in stool. Endocrine: Negative for cold intolerance and heat intolerance. Genitourinary: Negative for dysuria, hematuria and scrotal swelling. Musculoskeletal: Positive for arthralgias. Negative for myalgias. Skin: Negative for pallor and rash. Allergic/Immunologic: Negative for immunocompromised state. Neurological: Negative for dizziness, syncope and light-headedness. Hematological: Negative for adenopathy. Does not bruise/bleed easily. Psychiatric/Behavioral: Negative for sleep disturbance. The patient is not nervous/anxious. PAST MEDICAL HISTORY Diagnosis Date Allergic rhinitis BPH (benign prostatic hyperplasia) Bronchospasm Carpal tunnel syndrome Contact dermatitis due to poison dwayne being treated by Dr. Jeff Contact dermatitis due to poison oak DVT (deep venous thrombosis) ([facility]) 03/11/1996 L leg unprovoked Fatigue Fibromyalgia Gastroesophageal reflux disease Hiatal hernia Hip pain Hyperlipidemia Knee pain Dr. Cooper; OA Morbid obesity ([facility]) 01/27/2015 Neck pain Osteoarthritis of multiple joints Osteoporosis Peripheral edema Polymyalgia rheumatica ([facility]) Rheumatoid arthritis, adult ([facility]) Sciatica Shoulder joint pain Spasm of back muscles Spondylosis Vitamin D deficiency PAST SURGICAL HISTORY Procedure Laterality Date ARTHRP ACETBLR/PROX FEM PROSTC AGRFT/ALGRFT 1995 left- Left TKR Dr. Cooper; ARTHRP KNE CONDYLE&PLATU MEDIAL&LAT COMPARTMENTS 2008 right ARTHRP KNE CONDYLE&PLATU MEDIAL&LAT COMPARTMENTS Left 2011 CARPAL TUNNEL Left 1989 COLONOSCOPY will think about it EXTRACTION ERUPTED TOOTH wisdom teeth PAST SURGICAL HISTORY OF 2011 left knee; right revision REPAIR UMBILICAL HERNIA 02/01/2015 TONSILLECTOMY & ADENOIDECTOMY <AGE 13 TREATMENT OF RETINA Right eye retinal tear repair x3 Dr. Seymour 08/2011 Social History Tobacco Use Smoking status: Never Smokeless tobacco: Never Tobacco comments: Second hand smoke Substance Use Topics Alcohol use: No Drug use: No FAMILY HISTORY Problem Relation Age of Onset Arthritis Mother Hypertension Mother other (a fib) Mother other (CVA) Mother other (OA) Mother other (CAD) Father other (valve disorder) Father Arthritis Sister other (sleep apnea problems) Sister other (sleep apnea problems) Sister Arthritis Brother other (sleep apnea problems) Brother other (sleep apnea problems) Brother ALLERGIES No Known Allergies CURRENT MEDICATIONS: fluticasone (FLONASE) 50 mcg/actuation nasal spray USE 2 SPRAYS INTRANASALLY DAILY IN EACH NOSTRIL AT BEDTIME ipratropium bromide (ATROVENT) 42 mcg (0.06 %) nasal spray USE 2 SPRAYS IN EACH NOSTRIL EVERY MORNING AND NEEDED 4-6 HOURS LATER (FOR RUNNY NOSE) tamsulosin (FLOMAX) 0.4 mg TAKE 1 CAPSULE BY MOUTH EVERY DAY Potassium 99 mg tab Take by mouth. 1 pill bid Cholecalciferol, Vitamin D3, (VITAMIN D-3) 2,000 unit cap Take 1 capsule by mouth once daily. multivitamin tablet 1 tablet(s) by mouth daily acetaminophen (TYLENOL) 325 mg tablet 1-2 Tablet Every 6 hours as needed Oral PRN Magnesium 250 mg tab Take 250 mg by mouth twice daily. loratadine (CLARITIN) 10 mg tablet TAKE 1 TABLET BY MOUTH EVERY DAY (Patient not taking: Reported on 10/24/2022) budesonide-formoterol (SYMBICORT) 160-4.5 mcg/actuation inhaler Inhale 2 Puffs as instructed twice daily. (Patient not taking: Reported on 10/24/2022) albuterol (PROVENTIL) 2.5 mg /3 mL (0.083 %) nebulizer solution TAKE 1 NEBULIZER (INHALATION) EVERY 4-6 HOURS NEEDED FOR 99 DAYS 1 BOX (Patient not taking: Reported on 10/24/2022) albuterol HFA (PROVENTIL HFA, VENTOLIN HFA) 90 mcg/actuation inhaler TAKE 2 EACH (INHALATION) EVERY 4-6 HOURS NEEDED - WHEEZING FOR 99 DAYS (Patient not taking: Reported on 10/24/2022) ipratropium-albuterol (DUONEB) 0.5 mg-3 mg(2.5 mg base)/3 mL nebu PLEASE SEE ATTACHED FOR DETAILED DIRECTIONS (Patient not taking: Reported on 10/24/2022) aspirin, enteric coated (ECOTRIN LOW STRENGTH) 81 mg EC tablet Take 1 tablet by mouth once daily. (Patient not taking: Reported on 10/24/2022) Aaron Chaidez DO, [facility], [facility] Coal Cutting Machine Operator, [facility] Ambulatory [facility]iology Coal Cutting Machine Operator, [facility]iac [facility] Coal Cutting Machine Operator, [facility] Card[facility] Rehabilitation Coal Cutting Machine Operator, [facility] Coal Cutting Machine Operator, [facility] Ambulatory Cardiology Clinical Technical Publications Writer Profressor of Medicine, [facility] Staff Manager Education, Jose Collins Department of Cardiovascular Medicine/Heart and V[facility] [place], [facility] Please note: This note has been produced using speech recognition software and may contain errors related to that system including raffi, punctuation, spelling, words, gender and phrases that may be inappropriate. documented in this encounter [facility] 10-22-2022 Miscellaneous Notes Last routine OV 04/03/22 Labs 04/24/22 Pharmacy calls in requesting the following refill(s): Requested Prescriptions Pending Prescriptions Disp Refills loratadine (CLARITIN) 10 mg tablet [Pharmacy Med Name: LORATADINE 10 MG TABLET] 90 tablet 1 Sig: TAKE 1 TABLET BY MOUTH EVERY DAY Marti Mack MA documented in this encounter [facility] 10-17-2022 Miscellaneous Notes Patient would like referral to Dr Natarajan. We will need to fax last 3 labs, last 3 OV, any xrays, insurance cards and facesheet. documented in this encounter [facility] 06-26-2022 Note HNO ID: [id number] Author: RT Mony(Josefa) Service: ? Author Type: Technologist Type: Progress Notes Filed: 06/26/2022 2:45 PM Note Text: Radiology Service Progress Note PATIENT NAME: Viecnte Del Rosario DATE OF SERVICE: June 26, 2022 TIME: 2:45 PM PATIENT IDENTITY VERIFICATION COMPLETED USING TWO (2) IDENTIFIERS: Name and Date of confirmed by patient verbally. FALL SCREENING: Has the patient had 2 falls in the last year or 1 fall with injury or currently using an Ambulatory Assistive Device (Walker, Cane, Wheelchair, Crutches, etc.)? No PATIENT GENDER DATA: Male PATIENT RELEVANT IMPLANT DATA REVIEWED: Not Applicable RADIOLOGY DEPARTMENT: General X-ray: Exam(s) Completed: Chest X-Ray PERIPHERAL IV DATA: Not applicable SIGNED BY: RT Mony(R) June 26, 2022 2:45 PM [facility] 06-26-2022 Note HNO ID: [id number] Author: Pam Matta MD Service: ? Author Type: Physician Type: Progress Notes Filed: 06/26/2022 3:12 PM Note Text: . Respiratory [place] Note Patient name: Vicente Del Rosario PCP: Mirella Jones APRN.[employer] Referring Physician: Same Consultation requested by Mirella Jones for an opinion regarding recurrent bronchitis. My final recommendations will be communicated back to the requesting physician by way of shared Medical record or letter to requesting physician via US mail. CC: Recurrent bronchitis HPI: Vicente Del Rosario 77 year old male never smoker with PMH significant for morbid obesity, rheumatoid arthritis, fibromyalgia, HLD, GERD, DVT being referred for evaluation of bronchitis. No prior history of asthma or COPD. States that he has bronchitis 2-3 times a year, usually between December and May. When ill with bronchitis, mucus is yellow to brown in color, chest congestion, shortness of breath and wheezing. Recent acute visit for bronchitis, started on Duoneb, prednisone and antibiotic. Still having some brown mucus production. Inhaled therapy and prednisone has helped with chest congestion and wheezing. 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 No history of allergies. DATA: PFT: Review of spirometry shows combined obstruction and restriction. Improvement in small airways obstruction with bronchodilator Labs: Component Ref Range AND Units 2 mo ago (04/24/22) WBC 3.70 - 11.00 k/uL 6.52 RBC 4.20 - 6.00 m/uL 4.13 Low Hemoglobin 13.0 - 17.0 g/dL 14.0 Hematocrit 39.0 - 51.0 % 43.1 MCV 80.0 - 100.0 fL 104.4 High MCH 26.0 - 34.0 pg 33.9 MCHC 30.5 - 36.0 g/dL 32.5 RDW-CV 11.5 - 15.0 % 13.0 Platelet Count 150 - 400 k/uL 193 MPV 9.0 - 12.7 fL 9.8 Imaging / Diagnostic Studies: Chest x-ray today shows evidence of old granulomatous disease but no significant infiltrates or interstitial markings PAST MEDICAL HISTORY Diagnosis Date Allergic rhinitis BPH (benign prostatic hyperplasia) Bronchospasm Carpal tunnel syndrome Contact dermatitis due to poison dwayne being treated by Dr. Jeff Contact dermatitis due to poison oak DVT (deep venous thrombosis) ([facility]) 03/11/1996 L leg unprovoked Fatigue Fibromyalgia Gastroesophageal reflux disease Hiatal hernia Hip pain Hyperlipidemia Knee pain Dr. Cooper; OA Morbid obesity ([facility]) 01/27/2015 Neck pain Osteoarthritis of multiple joints Osteoporosis Peripheral edema Polymyalgia rheumatica ([facility]) Rheumatoid arthritis, adult ([facility]) Sciatica Shoulder joint pain Spasm of back muscles Spondylosis Vitamin D deficiency ALLERGIES No Known Allergies albuterol (PROVENTIL) 2.5 mg /3 mL (0.083 %) nebulizer solution TAKE 1 NEBULIZER (INHALATION) EVERY 4-6 HOURS NEEDED FOR 99 DAYS 1 BOX albuterol HFA (PROVENTIL HFA, VENTOLIN HFA) 90 mcg/actuation inhaler TAKE 2 EACH (INHALATION) EVERY 4-6 HOURS NEEDED - WHEEZING FOR 99 DAYS ipratropium-albuterol (DUONEB) 0.5 mg-3 mg(2.5 mg base)/3 mL nebu PLEASE SEE ATTACHED FOR DETAILED DIRECTIONS tamsulosin (FLOMAX) 0.4 mg TAKE 1 CAPSULE BY MOUTH EVERY DAY loratadine (CLARITIN) 10 mg tablet TAKE 1 TABLET BY MOUTH EVERY DAY Potassium 99 mg tab Take by mouth. 1 pill bid Cholecalciferol, Vitamin D3, (VITAMIN D-3) 2,000 unit cap Take 1 capsule by mouth once daily. multivitamin tablet 1 tablet(s) by mouth daily acetaminophen (TYLENOL) 325 mg tablet 1-2 Tablet Every 6 hours as needed Oral PRN Magnesium 250 mg tab Take 250 mg by mouth twice daily. aspirin, enteric coated (ECOTRIN LOW STRENGTH) 81 mg EC tablet Take 1 tablet by mouth once daily. 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 Cooper; ARTHRP KNE CONDYLEANDPLATU MEDIALANDLAT COMPARTMENTS 2008 right ARTHRP KNE CONDYLEANDPLATU MEDIALANDLAT COMPARTMENTS Left 2011 CARPAL TUNNEL Left 1989 COLONOSCOPY will think about it EXTRACTION ERUPTED TOOTH wisdom teeth PAST SURGICAL HISTORY OF 2012 left knee; right revision REPAIR UMBILICAL HERNIA 02/01/2015 TONSILLECTOMY AND ADENOIDECTOMY TREATMENT OF RETINA Right eye retinal tear repair x3 Dr. Harris (more content not included)... [facility] 06-26-2022 Note HNO ID: [id number] Author: CLEOPATRA Basurto Service: ? Author Type: Respiratory Therapist Type: Progress Notes Filed: 06/26/2022 1:17 PM Note Text: PULM FUNCTION SMARTBLOCK: Provider: Pam Matta MD Assisting Tech: CLEOPATRA Basurto Spirometry w/BD: 1 [facility] 06-26-2022 History of Presen t illness Narrative Radiology Service Progress Note PATIENT NAME: Vicente Del Rosario DATE OF SERVICE: June 26, 2022 TIME: 2:45 PM PATIENT IDENTITY VERIFICATION COMPLETED USING TWO (2) IDENTIFIERS: Name and Date of confirmed by patient verbally. FALL SCREENING: Has the patient had 2 falls in the last year or 1 fall with injury or currently using an Ambulatory Assistive Device (Walker, Cane, Wheelchair, Crutches, etc.)? No PATIENT GENDER DATA: Male PATIENT RELEVANT IMPLANT DATA REVIEWED: Not Applicable RADIOLOGY DEPARTMENT: General X-ray: Exam(s) Completed: Chest X-Ray PERIPHERAL IV DATA: Not applicable SIGNED BY: RT Mony(R) June 26, 2022 2:45 PM documented in this encounter [facility] 06-12-2022 Note HNO ID: [id number] Author: Mirella Jones APRN.[employer] Service: ? Author Type: Nurse Practitioner Type: Progress Notes Filed: 06/12/2022 1:09 PM Note Text: This note was created using [employer] Radiologyriter. Subjective Vicente Del Rosario is a 76 year old male here today for follow up on a stuffy nose . PMH OA, BPH, DDD, fibromyalgia. He went to urgent care on 06/02/22 for this. He was given rx for Augmentin, prednisone, and inhalers. He reports he is feeling better. Reports stuffiness has improved. States he continues to cough and reports sputum is white. It was brown. Reports the nasal drainage is now die baker as well. He reports slight wheezing but is much improved since being treated. Reports when he was at urgent care his pulse ox was 90%. He was given breathing treatment and it did come up to 93%. Reports sob has improved. He is taking is aerosol treatment twice a day. He completed his antibiotic and prednisone last evening. He was not tested for COVID at urgent care. Reports 2 at home tests were negative. He is requesting referrals to a new lighting equipment operator in [facility] due to Dr Siegel is leaving. Reports he saw him years ago. States he would like a referral to just be checked out. He would like to See Dr Romero. Reports his sister sees him. Recent ECG 04/24/22 Ventricular Rate 68 BPM Preliminary CPDAKH Atrial Rate 68 BPM Preliminary CPDAKH P-R Interval 136 ms Preliminary CPDAKH QRS Duration 126 ms Preliminary CPDAKH QT Interval 414 ms Preliminary CPDAKH QTC Calculation (Bazett) 440 ms Preliminary CPDAKH Calculated P [place] 23 degrees Preliminary CPDAKH Calculated R [place] -18 degrees Preliminary CPDAKH Calculated T [place] 34 degrees Preliminary CPDAKH Impression NORMAL SINUS RHYTHM RIGHT BUNDLE BRANCH BLOCK ABNORMAL ECG WHEN COMPARED WITH ECG OF 03-AUG-2015 09:32, RIGHT BUNDLE BRANCH BLOCK HAS REPLACED NON-SPECIFIC INTRA-VENTRICULAR CONDUCTION DELAY He would like referral to [facility] for chronic bronchitis . Reports he will get symptoms 4-5x/yr. Reports most of times he fights with OTC medications. States this time he was so congested and couldn't breathing and was wheezing. Referral to urology for overactive bladder and frequency. Hx BPH. Reports getting up 3-4x/night. Reports this has worsened. ALLERGIES No Known Allergies Current Outpatient Medications Medication Sig Dispense Refill amoxicillin-clavulanic acid (AUGMENTIN) 875-125 mg per tablet Take 1 tablet by mouth twice daily. predniSONE (DELTASONE) 20 mg tablet PLEASE SEE ATTACHED FOR DETAILED DIRECTIONS albuterol (PROVENTIL) 2.5 mg /3 mL (0.083 %) nebulizer solution TAKE 1 NEBULIZER (INHALATION) EVERY 4-6 HOURS NEEDED FOR 99 DAYS 1 BOX albuterol HFA (PROVENTIL HFA, VENTOLIN HFA) 90 mcg/actuation inhaler TAKE 2 EACH (INHALATION) EVERY 4-6 HOURS NEEDED - WHEEZING FOR 99 DAYS ipratropium-albuterol (DUONEB) 0.5 mg-3 mg(2.5 mg base)/3 mL nebu PLEASE SEE ATTACHED FOR DETAILED DIRECTIONS tamsulosin (FLOMAX) 0.4 mg TAKE 1 CAPSULE BY MOUTH EVERY DAY 90 capsule 3 loratadine (CLARITIN) 10 mg tablet TAKE 1 TABLET BY MOUTH EVERY DAY 90 tablet 1 Potassium 99 mg tab Take by mouth. 1 pill bid Cholecalciferol, Vitamin D3, (VITAMIN D-3) 2,000 unit cap Take 1 capsule by mouth once daily. multivitamin tablet 1 tablet(s) by mouth daily acetaminophen (TYLENOL) 325 mg tablet 1-2 Tablet Every 6 hours as needed Oral PRN Magnesium 250 mg tab Take 250 mg by mouth twice daily. aspirin, enteric coated (ECOTRIN LOW STRENGTH) 81 mg EC tablet Take 1 tablet by mouth once daily. 30 tablet 0 No current facility-administered medications for this visit. ACTIVE PROBLEM LIST Fibromyalgia Osteoarthritis Bph (Benign Prostatic Hyperplasia) Lumbar Radiculopathy Ddd (Degenerative Disc Disease), Lumbar Lumbar Spondylosis Lumbar Stenosis Morbid Obesity (Hcc) Weakness of Trunk Musculature Posture Abnormality Difficulty in Walking Involving Lower Leg Joint Obesity, Class III, BMI >= 40 Encounter for Screening Colonoscopy PAST MEDICAL HISTORY Diagnosis Date Acute bronchitis Acute sinusitis Allergic rhinitis BPH (benign prostatic hyperplasia) Bronchospasm Carpal tunnel syndrome Chronic osteoarthritis Contact dermatitis due to poison dwayne being treated by Dr. Jeff Contact dermatitis due to poison oak DVT (deep venous thrombosis) ([facility]) 1996 L leg unprovoked Fatigue Fibromyalgia Gastroesophageal reflux disease Hiatal hernia Hip pain Hyperlipidemia Hyperlipidemia Knee pain Dr. Cooper; OA Known medical problems Pain radiating to lumbar region of back-- Radiating to LLE Morbid obesity (HCC) 01/27/2015 Morbid obesity (HCC) BMI 43 Neck pain Osteoarthritis Osteoarthritis of multiple joints Osteoporosis Peripheral edema Peripheral venous insufficiency Polymyalgia rheumatica (HCC) Primary fibromyalgia syndrome Pulmonary congestion Rheumatoid arthritis, adult ([facility]CC) (more content not included)... [facility] 06-12-2022 Instructions Mirella Jones APRN.GAYLE - 06/12/2022 9:38 AM EDT ASSESSMENT/PLAN: 1. Bronchitis - ICD9: 490, ICD10: J40 (primary diagnosis) - CONSULT TO PULMONARY MEDICINE 2. Benign prostatic hyperplasia without lower urinary tract symptoms - ICD9: 600.00, ICD10: N40.0 - CONSULT TO UROLOGY 3. Screening for cardiovascular condition - ICD9: V81.2, ICD10: Z13.6 - CONSULT TO CARDIOLOGY Mirella Jones APRN.[employer] documented in this encounter [facility] 06-12-2022 History of Presen t illness Narrative This note was created using NoteWriter. Subjective Vicente Del Rosario is a 76 year old male here today for follow up on a stuffy nose . PMH OA, BPH, DDD, fibromyalgia. He went to urgent care on 06/02/22 for this. He was given rx for Augmentin, prednisone, and inhalers. He reports he is feeling better. Reports stuffiness has improved. States he continues to cough and reports sputum is white. It was brown. Reports the nasal drainage is now die baker as well. He reports slight wheezing but is much improved since being treated. Reports when he was at urgent care his pulse ox was 90%. He was given breathing treatment and it did come up to 93%. Reports sob has improved. He is taking is aerosol treatment twice a day. He completed his antibiotic and prednisone last evening. He was not tested for COVID at urgent care. Reports 2 at home tests were negative. He is requesting referrals to a new lighting equipment operator in [facility] due to Dr Siegel is leaving. Reports he saw him years ago. States he would like a referral to just be checked out. He would like to See Dr Romero. Reports his sister sees him. Recent ECG 04/24/22 Ventricular Rate 68 BPM Preliminary CPDAKH Atrial Rate 68 BPM Preliminary CPDAKH P-R Interval 136 ms Preliminary CPDAKH QRS Duration 126 ms Preliminary CPDAKH QT Interval 414 ms Preliminary CPDAKH QTC Calculation (Bazett) 440 ms Preliminary CPDAKH Calculated P [place] 23 degrees Preliminary CPDAKH Calculated R [place] -18 degrees Preliminary CPDAKH Calculated T [place] 34 degrees Preliminary CPDAKH Impression NORMAL SINUS RHYTHM RIGHT BUNDLE BRANCH BLOCK ABNORMAL ECG WHEN COMPARED WITH ECG OF 03-AUG-2015 09:32, RIGHT BUNDLE BRANCH BLOCK HAS REPLACED NON-SPECIFIC INTRA-VENTRICULAR CONDUCTION DELAY He would like referral to [employer] for chronic bronchitis . Reports he will get symptoms 4-5x/yr. Reports most of times he fights with OTC medications. States this time he was so congested and couldn't breathing and was wheezing. Referral to urology for overactive bladder and frequency. Hx BPH. Reports getting up 3-4x/night. Reports this has worsened. ALLERGIES No Known Allergies Current Outpatient Medications Medication Sig Dispense Refill amoxicillin-clavulanic acid (AUGMENTIN) 875-125 mg per tablet Take 1 tablet by mouth twice daily. predniSONE (DELTASONE) 20 mg tablet PLEASE SEE ATTACHED FOR DETAILED DIRECTIONS albuterol (PROVENTIL) 2.5 mg /3 mL (0.083 %) nebulizer solution TAKE 1 NEBULIZER (INHALATION) EVERY 4-6 HOURS NEEDED FOR 99 DAYS 1 BOX albuterol HFA (PROVENTIL HFA, VENTOLIN HFA) 90 mcg/actuation inhaler TAKE 2 EACH (INHALATION) EVERY 4-6 HOURS NEEDED - WHEEZING FOR 99 DAYS ipratropium-albuterol (DUONEB) 0.5 mg-3 mg(2.5 mg base)/3 mL nebu PLEASE SEE ATTACHED FOR DETAILED DIRECTIONS tamsulosin (FLOMAX) 0.4 mg TAKE 1 CAPSULE BY MOUTH EVERY DAY 90 capsule 3 loratadine (CLARITIN) 10 mg tablet TAKE 1 TABLET BY MOUTH EVERY DAY 90 tablet 1 Potassium 99 mg tab Take by mouth. 1 pill bid Cholecalciferol, Vitamin D3, (VITAMIN D-3) 2,000 unit cap Take 1 capsule by mouth once daily. multivitamin tablet 1 tablet(s) by mouth daily acetaminophen (TYLENOL) 325 mg tablet 1-2 Tablet Every 6 hours as needed Oral PRN Magnesium 250 mg tab Take 250 mg by mouth twice daily. aspirin, enteric coated (ECOTRIN LOW STRENGTH) 81 mg EC tablet Take 1 tablet by mouth once daily. 30 tablet 0 No current facility-administered medications for this visit. ACTIVE PROBLEM LIST Fibromyalgia Osteoarthritis Bph (Benign Prostatic Hyperplasia) Lumbar Radiculopathy Ddd (Degenerative Disc Disease), Lumbar Lumbar Spondylosis Lumbar Stenosis Morbid Obesity ([facility]) Weakness of Trunk Musculature Posture Abnormality Difficulty in Walking Involving Lower Leg Joint Obesity, Class III, BMI >= 40 Encounter for Screening Colonoscopy PAST MEDICAL HISTORY Diagnosis Date Acute bronchitis Acute sinusitis Allergic rhinitis BPH (benign prostatic hyperplasia) Bronchospasm Carpal tunnel syndrome Chronic osteoarthritis Contact dermatitis due to poison dwayne being treated by Dr. Jeff Contact dermatitis due to poison oak DVT (deep venous thrombosis) ([facility]) 1996 L leg unprovoked Fatigue Fibromyalgia Gastroesophageal reflux disease Hiatal hernia Hip pain Hyperlipidemia Hyperlipidemia Knee pain Dr. Cooper; OA Known medical problems Pain radiating to lumbar region of back-- Radiating to LLE Morbid obesity ([facility]) 01/27/2015 Morbid obesity ([facility]) BMI 43 Neck pain Osteoarthritis Osteoarthritis of multiple joints Osteoporosis Peripheral edema Peripheral venous insufficiency Polymyalgia rheumatica (HCC) Primary fibromyalgia syndrome Pulmonary congestion Rheumatoid arthritis, adult ([facility]) Sciatica Shoulder joint pain Spasm of back muscles Spondylosis Vitamin D deficiency PAST SURGICAL HISTORY Procedure Laterality Date ARTHRP ACETBLR/PROX FEM PROSTC AGRFT/ALGRFT 1995 left- Left TKR Dr. Cooper; ARTHRP KNE CONDYLE&PLATU MEDIAL&LAT COMPARTMENTS 2008 right ARTHRP KNE CONDYLE&PLATU MEDIAL&LAT COMPARTMENTS Left 2011 CARPAL TUNNEL Left 1989 COLONOSCOPY will think about it EXTRACTION ERUPTED TOOTH wisdom teeth PAST SURGICAL HISTORY OF 2012 left knee; right revision REPAIR UMBILICAL HERNIA 02/01/2015 TONSILLECTOMY & ADENOIDECTOMY <AGE 13 TREATMENT OF RETINA Right eye retinal tear repair x3 Dr. Seymour 08/2011 Social History Tobacco Use Smoking status: Never Smokeless tobacco: Never Substance Use Topics Alcohol use: No Drug use: No Family History Problem Relation Age of Onset Arthritis Mother Hypertension Mother other (a fib) Mother other (CVA) Mother other (OA) Mother other (CAD) Father other (valve disorder) Father Arthritis Sister other (sleep apnea problems) Sister other (sleep apnea problems) Sister Arthritis Brother other (sleep apnea problems) Brother other (sleep apnea problems) Brother Review of Systems Constitutional: Positive for fatigue. Negative for chills and fever. Fever resolved HENT: Positive for congestion and rhinorrhea. Negative for ear pain, postnasal drip, sinus pressure, sinus pain, sore throat and trouble swallowing. Respiratory: Positive for cough, shortness of breath and wheezing. Negative for chest tightness. All improving. Cardiovascular: Negative for chest pain, palpitations and leg swelling. Gastrointestinal: Negative for diarrhea, nausea and vomiting. Genitourinary: Positive for frequency. Negative for difficulty urinating. Chronic Neurological: Negative for dizziness and headaches. Objective BP 122/78 (BP Site: Left Arm, BP Position: Sitting, BP Cuff Size: Large Adult) Pulse 73 Temp 36.4 C (97.5 F) (Oral) Resp 18 Ht 177.8 cm (5' 10 ) Wt 134.3 kg (296 lb) SpO2 98% BMI 42.47 kg/m Physical Exam Vitals and nursing note reviewed. Constitutional: General: He is not in acute distress. Appearance: He is obese. He is not ill-appearing. HENT: Head: Normocephalic and atraumatic. Right Ear: Tympanic membrane, ear canal and external ear normal. Left Ear: Tympanic membrane, ear canal and external ear normal. Nose: Rhinorrhea present. No congestion. Mouth/Throat: Pharynx: Oropharynx is clear. No oropharyngeal exudate or posterior oropharyngeal erythema. Eyes: Conjunctiva/sclera: Conjunctivae normal. Cardiovascular: Rate and Rhythm: Normal rate and regular rhythm. Pulses: Normal pulses. Heart sounds: Normal heart sounds. Pulmonary: Effort: Pulmonary effort is normal. No respiratory distress. Breath sounds: No stridor. Wheezing and rhonchi present. No rales. Chest: Chest wall: No tenderness. Skin: General: Skin is warm and dry. Neurological: Mental Status: He is alert and oriented to person, place, and time. Psychiatric: Mood and Affect: Mood normal. Behavior: Behavior normal. Thought Content: Thought content normal. Judgment: Judgment normal. Component Latest Ref Rng & Units 04/24/2022 Protein, Total 6.3 - 8.0 g/dL 7.7 Albumin 3.9 - 4.9 g/dL 4.1 Calcium 8.5 - 10.2 mg/dL 9.8 Bilirubin, Total 0.2 - 1.3 mg/dL 0.8 Alkaline Phosphatase 38 - 113 U/L 71 AST 14 - 40 U/L 26 ALT 10 - 54 U/L 13 Glucose 74 - 99 mg/dL 103 (H) BUN 9 - 24 mg/dL 24 Creatinine 0.73 - 1.22 mg/dL 0.86 Sodium 136 - 144 mmol/L 140 Potassium 3.7 - 5.1 mmol/L 4.4 Chloride 97 - 105 mmol/L 102 CO2 22 - 30 mmol/L 29 Anion Gap 9 - 18 mmol/L 9 eGFR >=60 mL/min/1.73m 90 WBC 3.70 - 11.00 k/uL 6.52 RBC 4.20 - 6.00 m/uL 4.13 (L) Hemoglobin 13.0 - 17.0 g/dL 14.0 Hematocrit 39.0 - 51.0 % 43.1 MCV 80.0 - 100.0 fL 104.4 (H) MCH 26.0 - 34.0 pg 33.9 MCHC 30.5 - 36.0 g/dL 32.5 RDW-CV 11.5 - 15.0 % 13.0 Platelet Count 150 - 400 k/uL 193 MPV 9.0 - 12.7 fL 9.8 Cholesterol, Total <200 mg/dL 150 Triglyceride <150 mg/dL 63 HDL Cholesterol >39 mg/dL 62 Non HDL Cholesterol <130 mg/dL 88 Fasting Time hrs 12 VLDL Cholesterol <30 mg/dL 13 TC:HDL Ratio <5.10 2.42 LDL Cholesterol <100 mg/dL 75 LDL:HDL Ratio <2.54 1.21 PSA Screening <2.60 ng/mL 0.47 ASSESSMENT/PLAN: 1. Bronchitis - ICD9: 490, ICD10: J40 (primary diagnosis) - acute, no acute distress. Pt reports improvement in symptoms. Will continue aersol treatments as ordered. Pt requesting referral to pulm. Referral made. - instructed to call if symptoms persist or worsen - CONSULT TO PULMONARY MEDICINE 2. Benign prostatic hyperplasia without lower urinary tract symptoms - ICD9: 600.00, ICD10: N40.0 - chronic, stable. Pt has seen urology in the past and would like to re establish. Referral made - CONSULT TO UROLOGY 3. 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 States he see Dr Siegel years ago and would like to establish with Dr Romero who his sister is seeing. - CONSULT TO CARDIOLOGY Mirella Jones APRN.[employer] documented in this encounter [facility] 06-09-2022 Miscellaneous Notes Niece calling with request for refill of antibiotics and oral steroids for patient. Niece denies any new or worsening symptoms of which a provider is not aware:Yes. States patient was evaluated 2-3 weeks ago at a [facility], and prescribed Augmentin and prednisone, he has completed both, but is really not much better. Requesting additional treatment. PATIENT NOT PRESENT AT TIME OF THIS CALL. OUTCOME: This nurse advised that patient contact NOC directly to discuss symptoms and give recommendations as to where to receive care. Advised that if patient is experiencing new or worse symptoms he should GO TO THE EMERGENCY ROOM OR CALL 911 IF: * You develop any new symptoms * Your condition worsens * You are concerned or anxious about your condition for any other reason. If you have any questions, you can call Nurse sexton helper back. documented in this encounter [facility] 05-01-2022 Miscellaneous Notes Called pt let him know the results and for him to call if he develops any symptoms Marti Mack MA ----- Message from Mirella Jones APRN.[employer] CAR[employer]AK[employer] sent at 04/30/2022 1:54 PM EST ----- Let pt know that his ecg shows Right bundle branch block. This is seen when there is interruption in the electrical activity in the heart. Prevalence increases with age. With no hx of heart disease typically no further work up needed unless he develops any symptoms of swelling in his feet, cp, sob. Etc. By itself with out known heart disease most likely benign finding. documented in this encounter [facility] 04-27-2022 Miscellaneous Notes Patient informed of results. Janeth Seay MA Tried to call pt no VM set up to leave message Marti Mack MA ----- Message from Mirella Jones APRN.[employer] sent at 04/25/2022 1:13 PM EST ----- Psa wnl documented in this encounter [facility] 04-24-2022 Miscellaneous Notes Called pt let him know the results Marti Mack MA ----- Message from Mirella Jones APRN.[employer] sent at 04/24/2022 10:33 AM EST ----- CMP okay, sugar remains elevated/borderline prediabetes. Cbc stable Lipids are good documented in this encounter [facility] 04-20-2022 Miscellaneous Notes pharmacy electronically requesting refills as follows: Last seen 04/03/22 . Last refill 10/17/21 . Requested Prescriptions Pending Prescriptions Disp Refills loratadine (CLARITIN) 10 mg tablet [Pharmacy Med Name: LORATADINE 10 MG TABLET] 90 tablet 1 Sig: TAKE 1 TABLET BY MOUTH EVERY DAY Please review and advise. Janeth Seay MA documented in this encounter [facility] 04-03-2022 Note HNO ID: [id number] Author: Mirella Jones APRN.[employer] Service: ? Author Type: Nurse Practitioner Type: Progress Notes Filed: 04/03/2022 9:15 AM Note Text: Vicente Del Rosario is a 76 year old male here for a Medicare Subsequent Annual Wellness Visit Health Risk Assessment In general, health is: Very good Concerns with balance:Nearly every day, uses cane. Reports off balance at times. Reports walking he feels safer's with cane. Denies falls. Concerns with teeth or dentures:Not at all, he does have his own teeth. Reports goes once a year for cleaning. Concerns with sexual function:Not at all Faxon anxious, stressed, angry, irritable, lonely, isolated, or had thoughts of hurting themself: Not at all Has little interest or pleasure in doing things: Not at all Bothered by feeling down, depressed, or hopeless: Not at all Needs help with grocery shopping, cooking, housework, bathing, grooming, dressing, eating, sitting or standing, walking, using the toilet, handling finances, taking medications, using the telephone, or driving: Yes. Reports his sisters help him with the cooking. Reports his sisters will cook and bring him meals to heat up. Following safety precautions in the home environment and vehicle: removed throw rugs from floors, installed grab bars in the bathroom, handrails in stairwells, having adequate lighting, wearing seatbelt at all times?: Yes Smokes cigarettes, vapes, or chew tobacco: No Eats healthy foods including fruits, vegetables, whole grains, and fiber-rich foods: Not at all Number of days per week engages in exercise: none, he is very active. He lives by himself. He has barn animals which he takes care of twice a day with carrying water etc. Reports walking daily. Average alcohol consumption: Never Current Providers Specialists: I have reviewed specialist-related care of the patient in the medical record. Current care team: Patient Care Team: Mirella Jones APRN.[employer] as PCP - General (Internal Medicine) Jl Jiménez MD (Urology) Nik Kam (Podiatry) Reuben Cooper (Orthopedics) Hayden Siegel (Cardiology) Medical/Family history review Reviewed and updated problem list, medical/surgical/family/social history, medications, and allergies. Opioid use review Patient is not currently using opioids. Depression screening Depression Screening PHQ-2 Score PHQ-9 Score EARNEST-2 Total Score EARNEST-7 Total Score Score (Questions 1 AND 2) Total Score (All Questions) 04/03/2022 0 - - - - - Depression screening tool completed and reviewed. Based on score and interview, patient is not at risk for depression. Screening tool discussed with patient, and I recommended no further intervention at this time. Cognitive screening Mini Cog Score: Score: 5 Cognitive screening reviewed and no further action needed (score 3-5) Functional Observation Was the patient's timed Up AND Go test unsteady or ? 12 seconds? No Advance Care Planning End of Life planning discussed, including patient's advanced directive wishes: Yes, he will provide copy Reports arjun Tavarez is his DPOA. [phone] Measurements BP 120/80 Pulse 97 Temp (Src) 98.2 (Oral) Resp 18 Ht 5' 10 (1.78m) Wt 297 lb 12.8 oz (135.1kg) SpO2 98% BMI 42.73 kg/(m2). Visual acuity (required for Welcome to Medicare): Right: 20/40 Left: 20/ 40 Both: 20/35 Hearing Evaluation: hard of hearing He is not interested in any vaccines. He has not had covid or flu shots. He is up to date with his pneumonia vaccine. He is interested in his shingle shot. Assessment/Plan - Counseled on healthy diet and regular exercise - Discussed need for and benefit of weight loss. BMI 42.73 kg/(m2) - Fall avoidance - Vaccines recommended Pneumococcal and Shingrix at pharmacy - ECG screening (Welcome to Medicare) - Lipid panel - Diabetes screening - Depression screening ASSESSMENT/PLAN: 1. Medicare annual wellness visit, subsequent - ICD9: V70.0, ICD10: Z00.00 (primary diagnosis) - Counseled on healthy diet and regular exercise - Discussed need for and benefit of weight loss. BMI 42.73 kg/(m2) - Risks/benefits of prostate cancer screening discussed. screening PSA ordered - Follow up for annual exam in one year 2. Screening for cholesterol level - ICD9: V77.91, ICD10: Z13.220 - LIPID PANEL BASIC 3. Screening for prostate cancer - ICD9: V76.44, ICD10: Z12.5 - PSA/PROSTSPECAG SCRN 4. Encounter for screening for diabetes mellitus - ICD9: V77.1, ICD10: Z13.1 - COMP METABOLIC PANEL 5. Screening for deficiency anemia - ICD9: V78.1, ICD10: Z13.0 - CBC 6. Screening for cardiovascular condition - ICD9: V81.2, ICD10: Z13.6 - ECG COMPLETE Mirella Jones APRN.GAYLE [facility] 04-03-2022 Instructions Mirella Jones APRN.GAYLE - 04/03/2022 8:45 AM EST Screening schedule The following prevention plan is recommended: SHINGRIX VACCINE(1 of 2) Never done DEPRESSION ASSESSMENT Never done WHAT YOU CAN DO TO PREVENT FALLS Many falls can be prevented. By making some changes, you can lower your chances of falling. Four things YOU can do to prevent falls for you* and your caregiver 1. Begin a regular exercise program Exercise is one of the most important ways to lower your chances of falling. It makes you stronger and helps you feel better. Exercises that improve balance and coordination (like Marcello Chi) are the most helpful. Lack of exercise leads to weakness and increases your chances of falling. Ask your doctor or health care provider about the best type of exercise program for you. 2. Have your health care provider review your medicines Have your doctor or pharmacist review all the medicines you take, even [id number] medicines. As you get older, the way medicines work in your body can change. Some medicines, or combinations of medicines, can make you sleepy or dizzy and can cause you to fall. 3. Have your vision checked Have your eyes checked by an eye doctor at least once a year. You may be wearing the wrong glasses or have a condition like glaucoma or cataracts that limits your vision. Poor vision can increase your chances of falling. 4. Make your home safer About half of all falls happen at home. To make your home safer: Remove things you can trip over (like papers, books, clothes, and shoes) from stairs and places where you walk. Remove small throw rugs or use double-sided tape to keep the rugs from slipping. Keep items you use often in cabinets you can reach easily without using a step stool. Have grab bars put in next to your toilet and in the tub or shower. Use non-slip mats in the bathtub and on shower floors. Improve the lighting in your home. As you get older, you need brighter lights to see well. Hang light-weight curtains or shades to reduce glare. Have handrails and lights put in on all staircases. Wear shoes both inside and outside the house. Avoid going barefoot or wearing slippers. For more information, contact: Centers for Disease Control and Prevention www.cdc.gov/injury * This information may not apply if you have certain medical conditions. documented in this encounter [facility] 04-03-2022 History of Presen t illness Narrative Vicente Del Rosario is a 76 year old male here for a Medicare Subsequent Annual Wellness Visit Health Risk Assessment In general, health is: Very good Concerns with balance:Nearly every day, uses cane. Reports off balance at times. Reports walking he feels safer's with cane. Denies falls. Concerns with teeth or dentures:Not at all, he does have his own teeth. Reports goes once a year for cleaning. Concerns with sexual function:Not at all Faxon anxious, stressed, angry, irritable, lonely, isolated, or had thoughts of hurting themself: Not at all Has little interest or pleasure in doing things: Not at all Bothered by feeling down, depressed, or hopeless: Not at all Needs help with grocery shopping, cooking, housework, bathing, grooming, dressing, eating, sitting or standing, walking, using the toilet, handling finances, taking medications, using the telephone, or driving: Yes. Reports his sisters help him with the cooking. Reports his sisters will cook and bring him meals to heat up. Following safety precautions in the home environment and vehicle: removed throw rugs from floors, installed grab bars in the bathroom, handrails in stairwells, having adequate lighting, wearing seatbelt at all times?: Yes Smokes cigarettes, vapes, or chew tobacco: No Eats healthy foods including fruits, vegetables, whole grains, and fiber-rich foods: Not at all Number of days per week engages in exercise: none, he is very active. He lives by himself. He has barn animals which he takes care of twice a day with carrying water etc. Reports walking daily. Average alcohol consumption: Never Current Providers Specialists: I have reviewed specialist-related care of the patient in the medical record. Current care team: Patient Care Team: Mirella Jones APRN.[employer]ETAKER as PCP - General (Internal Medicine) Jl Jiménez MD (Urology) Nik Kam (Podiatry) Reuben Cooper (Orthopedics) Hayden Siegel (Cardiology) Medical/Family history review Reviewed and updated problem list, medical/surgical/family/social history, medications, and allergies. Opioid use review Patient is not currently using opioids. Depression screening Depression Screening PHQ-2 Score PHQ-9 Score EARNEST-2 Total Score EARNEST-7 Total Score Score (Questions 1 & 2) Total Score (All Questions) 04/03/2022 0 - - - - - Depression screening tool completed and reviewed. Based on score and interview, patient is not at risk for depression. Screening tool discussed with patient, and I recommended no further intervention at this time. Cognitive screening Mini Cog Score: Score: 5 Cognitive screening reviewed and no further action needed (score 3-5) Functional Observation Was the patient's timed Up & Go test unsteady or ? 12 seconds? No Advance Care Planning End of Life planning discussed, including patient's advanced directive wishes: Yes, he will provide copy Reports arjun Tavarez is his DPOA. [phone] Measurements BP 120/80 Pulse 97 Temp (Src) 98.2 (Oral) Resp 18 Ht 5' 10 (1.78m) Wt 297 lb 12.8 oz (135.1kg) SpO2 98% BMI 42.73 kg/(m^2). Visual acuity (required for Welcome to Medicare): Right: 20/40 Left: 20/ 40 Both: 20/35 Hearing Evaluation: hard of hearing He is not interested in any vaccines. He has not had covid or flu shots. He is up to date with his pneumonia vaccine. He is interested in his shingle shot. Assessment/Plan - Counseled on healthy diet and regular exercise - Discussed need for and benefit of weight loss. BMI 42.73 kg/(m^2) - Fall avoidance - Vaccines recommended Pneumococcal and Shingrix at pharmacy - ECG screening (Welcome to Medicare) - Lipid panel - Diabetes screening - Depression screening ASSESSMENT/PLAN: 1. Medicare annual wellness visit, subsequent - ICD9: V70.0, ICD10: Z00.00 (primary diagnosis) - Counseled on healthy diet and regular exercise - Discussed need for and benefit of weight loss. BMI 42.73 kg/(m^2) - Risks/benefits of prostate cancer screening discussed. screening PSA ordered - Follow up for annual exam in one year 2. Screening for cholesterol level - ICD9: V77.91, ICD10: Z13.220 - LIPID PANEL BASIC 3. Screening for prostate cancer - ICD9: V76.44, ICD10: Z12.5 - PSA/PROSTSPECAG SCRN 4. Encounter for screening for diabetes mellitus - ICD9: V77.1, ICD10: Z13.1 - COMP METABOLIC PANEL 5. Screening for deficiency anemia - ICD9: V78.1, ICD10: Z13.0 - CBC 6. Screening for cardiovascular condition - ICD9: V81.2, ICD10: Z13.6 - ECG COMPLETE Mirella Jones APRN.[employer] CARETAK[employer] documented in this encounter [facility] 03-01-2022 Miscellaneous Notes Last OV 01/04/21 Called pt let him know that he needs an apt no further refills till he is seen Pharmacy calls in requesting the following refill(s): Requested Prescriptions Pending Prescriptions Disp Refills tamsulosin (FLOMAX) 0.4 mg [Pharmacy Med Name: TAMSULOSIN HCL 0.4 MG CAPSULE] 30 capsule 0 Sig: TAKE 1 CAPSULE BY MOUTH EVERY DAY Marti Mack MA documented in this encounter [facility] 11-30-2021 Miscellaneous Notes pharmacy electronically requesting refills as follows: Last seen 01/04/21 . Last refill 06/01/21 . No future appointments. Requested Prescriptions Pending Prescriptions Disp Refills tamsulosin (FLOMAX) 0.4 mg [Pharmacy Med Name: TAMSULOSIN HCL 0.4 MG CAPSULE] 90 capsule 1 Sig: TAKE 1 CAPSULE BY MOUTH EVERY DAY Please review and advise. Janeth Seay MA documented in this encounter [facility] 10-17-2021 Miscellaneous Notes Last OV 01/04/21 Pt to follow up 1 year Labs 12/21/20 Pharmacy calls in requesting the following refill(s): Requested Prescriptions Pending Prescriptions Disp Refills loratadine (CLARITIN) 10 mg tablet [Pharmacy Med Name: LORATADINE 10 MG TABLET] 90 tablet 1 Sig: TAKE 1 TABLET BY MOUTH EVERY DAY Marti Mack MA documented in this encounter [facility] 06-01-2021 Miscellaneous Notes Pharmacy requesting refills as follows: Last Office Visit 01/04/21. Last Refill 12/07/20. Pending Prescriptions Disp Refills TAMSULOSIN 0.4 MG CAPSULE 90 capsule 1 Sig: TAKE 1 CAPSULE BY MOUTH EVERY DAY NATA: Yes Please review and advise. Radha Urrutia MA documented in this encounter [facility] documented as of this encounter (statuses as of 06/01/2021) [facility] History of Past illness Narrative* Problem Noted Date Resolved Date DVT (deep venous thrombosis) Overview: L leg unprovoked documented as of this encounter (statuses as of 10/17/2021) [facility] of Past illness Narrative* Problem Noted Date Resolved Date DVT (deep venous thrombosis) Overview: L leg unprovoked documented as of this encounter (statuses as of 11/30/2021) [facility] History of Past illness Narrative* Problem Noted Date Resolved Date DVT (deep venous thrombosis) Overview: L leg unprovoked documented as of this encounter (statuses as of 03/02/2022) [facility] of Past illness Narrative* Problem Noted Date Resolved Date DVT (deep venous thrombosis) Overview: L leg unprovoked documented as of this encounter (statuses as of 04/03/2022) [facility] of Past illness Narrative* Problem Noted Date Resolved Date DVT (deep venous thrombosis) Overview: L leg unprovoked documented as of this encounter (statuses as of 04/21/2022) [facility] of Past illness Narrative* Problem Noted Date Resolved Date DVT (deep venous thrombosis) Overview: L leg unprovoked documented as of this encounter (statuses as of 04/24/2022) [facility] of Past illness Narrative* Problem Noted Date Resolved Date DVT (deep venous thrombosis) Overview: L leg unprovoked documented as of this encounter (statuses as of 04/27/2022) [facility] of Past illness Narrative* Problem Noted Date Resolved Date DVT (deep venous thrombosis) Overview: L leg unprovoked documented as of this encounter (statuses as of 05/01/2022) [facility] of Past illness Narrative* Problem Noted Date Resolved Date DVT (deep venous thrombosis) Overview: L leg unprovoked documented as of this encounter (statuses as of 06/09/2022) [facility] of Past illness Narrative* Problem Noted Date Resolved Date DVT (deep venous thrombosis) Overview: L leg unprovoked documented as of this encounter (statuses as of 06/12/2022) [facility] of Past illness Narrative* Problem Noted Date Diagnosed Date Resolved Date DVT (deep venous thrombosis) 01/27/2015 Overview: L leg unprovoked documented as of this encounter (statuses as of 10/17/2022) [facility] of Past illness Narrative* Problem Noted Date Diagnosed Date Resolved Date DVT (deep venous thrombosis) 01/27/2015 Overview: L leg unprovoked documented as of this encounter (statuses as of 10/23/2022) [facility] of Past illness Narrative* Problem Noted Date Diagnosed Date Resolved Date DVT (deep venous thrombosis) 01/27/2015 Overview: L leg unprovoked documented as of this encounter (statuses as of 10/25/2022) [facility] History of Past illness Narrative* Problem Noted Date Diagnosed Date Resolved Date DVT (deep venous thrombosis) 01/27/2015 Overview: L leg unprovoked documented as of this encounter (statuses as of 11/08/2022) [facility] History of Past illness Narrative* Problem Noted Date Diagnosed Date Resolved Date DVT (deep venous thrombosis) 01/27/2015 Overview: L leg unprovoked documented as of this encounter (statuses as of 11/10/2022) [facility] History of Past illness Narrative* Problem Noted Date Diagnosed Date Resolved Date DVT (deep venous thrombosis) 01/27/2015 Overview: L leg unprovoked documented as of this encounter (statuses as of 11/10/2022) [facility] History of Past illness Narrative* Problem Noted Date Diagnosed Date Resolved Date DVT (deep venous thrombosis) 01/27/2015 Overview: L leg unprovoked documented as of this encounter (statuses as of 11/23/2022) [facility]2015 History of Past illness Narrative* Problem Noted Date Diagnosed Date Resolved Date DVT (deep venous thrombosis) 01/27/2015 Overview: L leg unprovoked documented as of this encounter (statuses as of 12/08/2022) [facility] History of Past illness Narrative* Problem Noted Date Diagnosed Date Resolved Date DVT (deep venous thrombosis) 01/27/2015 Overview: L leg unprovoked documented as of this encounter (statuses as of 01/08/2023) [facility] History of Past illness Narrative* Problem Noted Date Diagnosed Date Resolved Date DVT (deep venous thrombosis) 01/27/2015 Overview: L leg unprovoked documented as of this encounter (statuses as of 01/12/2023) [facility] History of Past illness Narrative* Problem Noted Date Diagnosed Date Resolved Date DVT (deep venous thrombosis) 01/27/2015 Overview: L leg unprovoked documented as of this encounter (statuses as of 01/13/2023) [facility] note* Diagnosis Benign prostatic hyperplasia without lower urinary tract symptoms documented in this encounter [facility] note* Diagnosis Environmental allergies Other allergy, other than to medicinal agents documented in this encounter [facility] note* Diagnosis Medicare annual wellness visit, subsequent- Primary Routine general medical examination at a health care facility Screening for cholesterol level Screening for lipoid disorders Screening for prostate cancer Special screening for malignant neoplasm of prostate Encounter for screening for diabetes mellitus Screening for diabetes mellitus Screening for deficiency anemia Screening for other and unspecified deficiency anemia Screening for cardiovascular condition Screening for other and unspecified cardiovascular conditions documented in this encounter [facility] note* Diagnosis Environmental allergies Other allergy, other than to medicinal agents documented in this encounter [facility] note* Diagnosis Bronchitis- Primary Bronchitis, not specified as acute or chronic Benign prostatic hyperplasia without lower urinary tract symptoms Screening for cardiovascular condition Screening for other and unspecified cardiovascular conditions documented in this encounter [facility] note* Diagnosis Environmental allergies Other allergy, other than to medicinal agents documented in this encounter [facility] note* Diagnosis Screening for cardiovascular condition- Primary Screening for other and unspecified cardiovascular conditions MARRERO (dyspnea on exertion) Other dyspnea and respiratory abnormality Chest discomfort Other chest pain Abnormal ECG Nonspecific abnormal electrocardiogram (ECG) (EKG) documented in this encounter [facility] note* Diagnosis Screening for cardiovascular condition Screening for other and unspecified cardiovascular conditions MARRERO (dyspnea on exertion) Other dyspnea and respiratory abnormality Chest discomfort Other chest pain Abnormal ECG Nonspecific abnormal electrocardiogram (ECG) (EKG) documented in this encounter [facility] note* Diagnosis Screening for cardiovascular condition Screening for other and unspecified cardiovascular conditions MARRERO (dyspnea on exertion) Other dyspnea and respiratory abnormality Chest discomfort Other chest pain Abnormal ECG Nonspecific abnormal electrocardiogram (ECG) (EKG) documented in this encounter [facility] note* Diagnosis MARRERO (dyspnea on exertion)- Primary Other dyspnea and respiratory abnormality Other chest pain documented in this encounter [facility] note* Diagnosis Mucopurulent chronic bronchitis (HCC) Mucopurulent chronic bronchitis documented in this encounter [facility] for referral (narrative)* Outpatient Procedure (Routine) - Pending Review Specialty Diagnoses / Procedures Referred By Contac t Referred To [facility] Diagnoses Screening for cardiovascular condition Procedures ECG COMPLETE ECG ROUTINE ECG W/LEAST 12 LDS W/I&R RobertMirella avelar APRN.[employer] CAR[employer]ER [address] [place] [id number] [address] [place] [phone] Referral ID Status Reason Start Date Expiration Date Visits Requested Visits Authorized [id number] Pending Review Auto-Generat ed Referral 04/03/2022 04/03/2023 1 1 [facility] for referral (narrative)* Outpatient Procedure (Routine) - Authorized Specialty Diagnoses / Procedures Referred By Contac t Referred To [facility] Diagnoses Screening for cardiovascular condition MARRERO (dyspnea on exertion) Chest discomfort Abnormal ECG Procedures ECHO ECHO TTHRC R-T 2D W/WOM-MODE COMPL SPEC&COLR D Aaron Chaidez DO [address] [place] [address] [place] [address] Referral ID Status Reason Start Date Expiration Date Visits Requested Visits Authorized [id number] Authorized Auto-Generat ed Referral 10/24/2022 10/24/2023 1 1 * Diagnostic Procedure Only (Routine) - Authorized Specialty Diagnoses / Procedures Referred By Contac t Referred To Contact [facility] Diagnoses Screening for cardiovascular condition MARRERO (dyspnea on exertion) Chest discomfort Abnormal ECG Procedures NM CARDIAC PERF STRESS/PHARM MYOCARDIAL SPECT MULTIPLE STUDIES Aaron Chaidez DO [address] [place] [address] [facility] [address] [place] [address] Referral ID Status Reason Start Date Expiration Date Visits Requested Visits Authorized [id number] Authorized Auto-Generat ed Referral 10/24/2022 11/23/2023 1 1 [facility] for referral (narrative)* Diagnostic Procedure Only (Routine) - Closed Specialty Diagnoses / Procedures Referred By Arlenac t Referred To Contact [facility] Diagnoses Screening for cardiovascular condition MARRERO (dyspnea on exertion) Chest discomfort Abnormal ECG Procedures NM CARDIAC PERF STRESS/PHARM MYOCARDIAL SPECT MULTIPLE STUDIES Aaron Chaidez DO [address] [place] [address] [facility] [address] [place] [id number] Referral ID Status Reason Start Date Expiration Date V isits Requested Visits Authorized [id number] Closed Auto-Generate d Referral 10/24/2022 11/23/2023 1 1 [facility] for visit Narrative* Diagnostic Procedure Only (Routine) - Closed Specialty Diagnoses / Procedures Referred By James t Referred To Contact [facility] Diagnoses Screening for cardiovascular condition MARRERO (dyspnea on exertion) Chest discomfort Abnormal ECG Procedures NM CARDIAC PERF STRESS/PHARM MYOCARDIAL SPECT MULTIPLE STUDIES Aaron Chaidez DO [address] [place] [address] [facility] [address] [place] [address] Referral ID Status Reason Start Date Expiration Date V isits Requested Visits Authorized [id number] Closed Auto-Generate d Referral 10/24/2022 11/23/2023 1 1 [facility] for visit Narrative* Outpatient Procedure (Routine) - Closed Specialty Diagnoses / Procedures Referred By [facility] Referred To Contact [facility] Diagnoses Screening for cardiovascular condition MARRERO (dyspnea on exertion) Chest discomfort Abnormal ECG Procedures ECHO ECHO TTHRC R-T 2D W/WOM-MODE COMPL SPEC&COLR D Aaron Chaidez DO [address] [place] [address] [facility] [address] [place] [address] Referral ID Status Reason Start Date Expiration Date V isits Requested Visits Authorized [id number] Closed Auto-Generate d Referral 10/24/2022 10/24/2023 1 1 [facility] Instructions Instruction Description Start Date Patient advised to follow-up with Primary Care Physician for BMI management. Advance Directives Documents on File Type Date Recorded Patient Loss Prevention Consultant Expl anation Advance Directive(s) 12/13/2017 9:33 AM Assessments There may be information available, but it has not been provided by the sender. Review of System There may be information available, but it has not been provided by the sender. Family History There may be information available, but it has not been provided by the sender.No Family History Records FoundNo Family History Records FoundNo Family History Records FoundNo Family History Records FoundNo Family History Records Found Summary Purpose Reason for Referral Specialty Diagnoses / Procedures Referred By Contac t Referred To Contact [facility]iology / [facility] Department Diagnoses Screening for cardiovascular condition Procedures CONSULT TO CARDIOLOGY OFFICE/OUTPATIENT [facility] 60-74 MINUTES Mirella Jones APRN.[employer] [address] [place] [address] Nik Olvera DO [address] [phone] Referral ID Status Reason Start Date Expiration Date Visits Requested Visits Authorized [id number] Authorized PCP Requested Referral 06/12/2022 06/12/2023 1 1 Specialty Diagnoses / Procedures Referred By Contac t Referred To Contact Diagnoses Bronchitis Procedures CONSULT TO PULMONARY MEDICINE Mirella Jones APRN.[employer] [address] [place] [address] Akil Cook MD [address] [phone] Referral ID Status Reason Start Date Expiration Date Visits Requested Visits Authorized [id number] Ref Not Required PCP Requested Referral 06/12/2022 09/10/2022 1 1 Specialty Diagnoses / Procedures Referred By Contac t Referred To Contact Diagnoses Benign prostatic hyperplasia without lower urinary tract symptoms Procedures CONSULT TO UROLOGY OFFICE/OUTPATIENT [facility] 60-74 MINUTES Mirella Jones HOT DIP TINNING SUPERVISOR.[employer] CARETAKER [address] [place] [address] Jl Jiménez MD [address] [place] [address] Referral ID Status Reason Start Date Expiration Date Visits Requested Visits Authorized [id number] Authorized PCP Requested Referral 06/12/2022 06/12/2023 1 1 Medications Administered Section Inactive Administered Medications - up to 3 most recent administrations Medication Order MAR Action Action Date Dose Rate Site regadenoson 0.4 mg injection (LEXISCAN) 0.4 mg, INTRAVENOUS, ONCE, 1 dose, On Sat11/09/22 at 1330, Give 0.4 mg (5 mL) over ~10 seconds, followed immediately by a 5 mL saline flush. Wait 10-20 seconds, then administer the radionuclide myocardial perfusion imaging agent. Given 11/09/2022 12:55 PM EDT 0.4 mg Inactive Administered Medications - up to 3 most recent administrations Medication Order MAR Action Action Date Dose Rate Site perflutren lipid microspheres 1.3 mL in NaCl (PF) 0.9% 10 mL injection (DEFINITY) INTRAVENOUS, DIRECTED NEEDED, 1 dose, Starting on Sat10/24/22 at 1207, Until Sat11/23/22 at 1019, Per Protocol - for use during ECHO procedure only, If no IV access, insert saline lock prior to administering contrast. Discontinue saline lock post exam. If patient has central line or IVAD, may access for administration according to line specific nursing protocol. Once exam is complete, flush line and de-access per line specific nursing protocol.Dilute 1.3 ml of Definity with 8.7 ml of preservative-free saline. Given 11/23/2022 10:19 AM EDT 1 mL Arm, Left sodium chloride 0.9 % (flush) 10 mL (BD POSIFLUSH) 10 mL, INTRAVENOUS, DIRECTED NEEDED, 1 dose, Starting on Sat10/24/22 at 1207, Until Sat11/23/22 at 1021, Per Protocol - for use during ECHO procedure only, no IV access, insert saline lock prior to administering contrast. Discontinue saline lock post exam. If patient has central line or IVAD, may access for administration according to line specific nursing protocol. Once exam is complete, flush line and de-access per line specific nursing protocol. Given 11/23/2022 10:21 AM EDT 10 mL Arm, Left Additional Source Comments (unrecognized sect ion and content) No Status Records FoundNo Status Records FoundNo Status Records FoundNo Status Records FoundNo Status Records Found INFORMATION SOURCE (unrecogn ized section and content) DATE CREATED AUTHOR AUTHOR'S ORGANIZ ATION 10/30/2019 [facility] DATE CREATED AUTHOR AUTHOR'S ORGANIZ ATION 10/24/2022 [facility] DATE CREATED AUTHOR AUTHOR'S ORGANIZ ATION 11/15/2022 [facility] DATE CREATED AUTHOR AUTHOR'S ORGANIZ ATION 01/13/2023 [facility] Source Comments (unrecognize d section and content) In the event this informatio n is protected by the Federal Confidentiality of Alcohol and Drug Abuse Patient Records regulations: The Federal rules restrict any use of the information to criminally investigate or prosecute any alcohol or drug abuse patient.[facility] the event this information is protected by the Federal Confidentiality of Alcohol and Drug Abuse Patient Records regulations: The Federal rules restrict any use of the information to criminally investigate or prosecute any alcohol or drug abuse patient.[facility] the event this information is protected by the Federal Confidentiality of Alcohol and Drug Abuse Patient Records regulations: The Federal rules restrict any use of the information to criminally investigate or prosecute any alcohol or drug abuse patient.[facility] the event this information is protected by the Federal Confidentiality of Alcohol and Drug Abuse Patient Records regulations: The Federal rules restrict any use of the information to criminally investigate or prosecute any alcohol or drug abuse patient.[facility] the event this information is protected by the Federal Confidentiality of Alcohol and Drug Abuse Patient Records regulations: The Federal rules restrict any use of the information to criminally investigate or prosecute any alcohol or drug abuse patient.[facility] the event this information is protected by the Federal Confidentiality of Alcohol and Drug Abuse Patient Records regulations: The Federal rules restrict any use of the information to criminally investigate or prosecute any alcohol or drug abuse patient.[facility] the event this information is protected by the Federal Confidentiality of Alcohol and Drug Abuse Patient Records regulations: The Federal rules restrict any use of the information to criminally investigate or prosecute any alcohol or drug abuse patient.[facility] the event this information is protected by the Federal Confidentiality of Alcohol and Drug Abuse Patient Records regulations: The Federal rules restrict any use of the information to criminally investigate or prosecute any alcohol or drug abuse patient.[facility] the event this information is protected by the Federal Confidentiality of Alcohol and Drug Abuse Patient Records regulations: The Federal rules restrict any use of the information to criminally investigate or prosecute any alcohol or drug abuse patient.[facility] the event this information is protected by the Federal Confidentiality of Alcohol and Drug Abuse Patient Records regulations: The Federal rules restrict any use of the information to criminally investigate or prosecute any alcohol or drug abuse patient.[facility] the event this information is protected by the Federal Confidentiality of Alcohol and Drug Abuse Patient Records regulations: The Federal rules restrict any use of the information to criminally investigate or prosecute any alcohol or drug abuse patient.[facility] the event this information is protected by the Federal Confidentiality of Alcohol and Drug Abuse Patient Records regulations: The Federal rules restrict any use of the information to criminally investigate or prosecute any alcohol or drug abuse patient.[facility] the event this information is protected by the Federal Confidentiality of Alcohol and Drug Abuse Patient Records regulations: The Federal rules restrict any use of the information to criminally investigate or prosecute any alcohol or drug abuse patient.[facility] the event this information is protected by the Federal Confidentiality of Alcohol and Drug Abuse Patient Records regulations: The Federal rules restrict any use of the information to criminally investigate or prosecute any alcohol or drug abuse patient.[facility] the event this information is protected by the Federal Confidentiality of Alcohol and Drug Abuse Patient Records regulations: The Federal rules restrict any use of the information to criminally investigate or prosecute any alcohol or drug abuse patient.[facility] the event this information is protected by the Federal Confidentiality of Alcohol and Drug Abuse Patient Records regulations: The Federal rules restrict any use of the information to criminally investigate or prosecute any alcohol or drug abuse patient.[facility] Center[facility] the event this information is protected by the Federal Confidentiality of Alcohol and Drug Abuse Patient Records regulations: The Federal rules restrict any use of the information to criminally investigate or prosecute any alcohol or drug abuse patient.[facility] Center[facility] the event this information is protected by the Federal Confidentiality of Alcohol and Drug Abuse Patient Records regulations: The Federal rules restrict any use of the information to criminally investigate or prosecute any alcohol or drug abuse patient.[facility] Center[facility] the event this information is protected by the Federal Confidentiality of Alcohol and Drug Abuse Patient Records regulations: The Federal rules restrict any use of the information to criminally investigate or prosecute any alcohol or drug abuse patient.[facility] Center[facility] the event this information is protected by the Federal Confidentiality of Alcohol and Drug Abuse Patient Records regulations: The Federal rules restrict any use of the information to criminally investigate or prosecute any alcohol or drug abuse patient.[facility] Center[facility] the event this information is protected by the Federal Confidentiality of Alcohol and Drug Abuse Patient Records regulations: The Federal rules restrict any use of the information to criminally investigate or prosecute any alcohol or drug abuse patient.[facility] Center[facility] the event this information is protected by the Federal Confidentiality of Alcohol and Drug Abuse Patient Records regulations: The Federal rules restrict any use of the information to criminally investigate or prosecute any alcohol or drug abuse patient.[facility] Reason for Visit (unrecogniz ed section and content) Reason Comments Medicare Wellness Exam Reason Comments Results Reason Comments Information Reason Comments Referral Request Patient would like r vipul to Dr Natarajan Reason Comments New Patient Consult to Vielka nicholas 06/12/22 - Screening for cardiovascular conditionSOB Room 13Previously saw Dr Siegel/Dr Avila @ [facility] 04/24/22 Specialty Diagnoses / Procedures Referred By Contac t Referred To Contact Cardiology / [facility] DEPARTMENT Diagnoses Screening for cardiovascular condition Procedures CONSULT TO CARDIOLOGY OFFICE/OUTPATIENT NEW HIGH MDM 60-74 MINUTES Mirella Jones, HOT DIP TINNING SUPERVISOR.[employer] CARETAKER [address] [place] [address] Nik Olvera, [address] [address] Referral ID Status Reason Start Date Expiration Date V isits Requested Visits Authorized [id number] Closed PCP Requested Referral 06/12/2022 06/12/2023 1 1 Reason Comments Reminder Call Reason Comments Follow Up Denies cardiac misael rns Reason Comments Results [employer] Care Teams (unrecognized sec tion and content) Applications Packager Relationship Specialty Start Date End Date Mirella Jones, HOT DIP TINNING SUPERVISOR.[employer] CARETAKER [address] [place] [address] PCP - General Internal Medicine 09/23/19 Applications Packager Relationship Specialty Start Date End Date Mirella Jones, HOT DIP TINNING SUPERVISOR.[employer] CARETAKER [address] [place] [address] PCP - General Internal Medicine 09/23/19 Jl Jiménez MD [address] [facility] [address] [place] [address] Urology 04/03/22 Nik Kam [address] [place] [phone] Podiatry 04/03/22 Reuben Cooper [address] [facility] [address] [place] [phone] Orthopedics 04/03/22 Hayden Siegel [address] [place] [address] Cardiology 04/03/22 Applications Packager Relationship Specialty Start Date End Date Mirella Jones, HOT DIP TINNING SUPERVISOR.[employer] CARETAKER [address] [place] [address] PCP - General Internal Medicine 09/23/19 Jl Jiménez MD [address] [id number] Urology 04/03/22 Nik Kam [address] [place] [phone] Podiatry 04/03/22 [facility] [address] [phone] Orthopedics 04/03/22 Hayden Siegel [address] [place] [address] Cardiology 04/03/22 Applications Packager Relationship Specialty Start Date End Date Mirella Jones, HOT DIP TINNING SUPERVISOR.[employer] CARETAKER [address] [place] [address] PCP - General Internal Medicine 09/23/19 Jl Jiménez MD [address] [id number] Urology 04/03/22 Nik Kam [address] [place] [phone] Podiatry 04/03/22 [facility] Cooper[facility] [address] [place] [phone] Orthopedics 04/03/22 Hayden Siegel [address] [place] [address] Cardiology 04/03/22 Applications Packager Relationship Specialty Start Date End Date Mirella Jones, HOT DIP TINNING SUPERVISOR.[employer] CARETAKER [address] [place] [address] PCP - General Internal Medicine 09/23/19 Jl Jiménez MD [address] [address] Urology 04/03/22 Nik Kam [address] [place] [phone] Podiatry 04/03/22 Reuben Cooper [address] [facility] [address] [place] [phone] Orthopedics 04/03/22 Hayden Siegel [address] [place] [address] Cardiology 04/03/22 Applications Packager Relationship Specialty Start Date End Date Mirella Jones HOT DIP TINNING SUPERVISOR.[employer] CARETAKER [address] [place] [address] PCP - General Internal Medicine 09/23/19 Jl Jiménez MD [address] [id number] Urology 04/03/22 Nik Kam [address] [place] [phone] Podiatry 04/03/22 Reuben Cooper [address] [facility] [address] [place] [phone] Orthopedics 04/03/22 Hayden Siegel [address] [place] [address] Cardiology 04/03/22 Applications Packager Relationship Specialty Start Date End Date Mirella Jones HOT DIP TINNING SUPERVISOR.[employer] CARETAKER [address] [place] [id number] PCP - General Internal Medicine 09/23/19 Jl Jiménez MD [address] [place] [id number] Urology 04/03/22 Nik Kam [address] [place] [id number] Podiatry 04/03/22 Reuben Cooper [address] [place] [address] Orthopedics 04/03/22 Hayden Siegel [address] [place] [address] Cardiology 04/03/22 Applications Packager Relationship Specialty Start Date End Date Mirella Jones HOT DIP TINNING SUPERVISOR.[employer] [address] [place] [address] [place] [id number] PCP - General Internal Medicine 09/23/19 Jl Jiménez MD [address] [id number] Urology 04/03/22 Nik Kam [address], [place] [id number] Podiatry 04/03/22 Reuben Cooper [address] [place] [address] Orthopedics 04/03/22 Hayedn Siegel [address] [facility] [address] Cardiology 04/03/22 Applications Packager Relationship Specialty Start Date End Date Mirella Jones, HOT DIP TINNING SUPERVISOR.[employer] CARETAKER [address] [place] [address] PCP - General Internal Medicine 09/23/19 Jl Jiménez MD [address] [place] [address] Urology 04/03/22 Nik Kam [address] [place] [address] Podiatry 04/03/22 Reuben Cooper [address] [place] [address] Orthopedics 04/03/22 Hayden Siegel [address] [place] [address] Cardiology 04/03/22 Applications Packager Relationship Specialty Start Date End Date Mirella Jones HOT DIP TINNING SUPERVISOR.[employer]ETAK[employer] [address] [place] [address] PCP - General Internal Medicine 09/23/19 Jl Jiménez MD [address] [place] [address] Urology 04/03/22 Nik Kam [address] [address] [place] [address] Podiatry 04/03/22 Reuben Cooper [address] [place] [address] Orthopedics 04/03/22 Hayden Siegel [facility] [address] [place] [id number] Cardiology 04/03/22 Applications Packager Relationship Specialty Start Date End Date Mirella Jones, HOT DIP TINNING SUPERVISOR.[facility] [address] [place] [address] PCP - General Internal Medicine 09/23/19 Jl Jiménez MD [address] [address] [place] [address] Urology 04/03/22 Nik Kam [address] [address] [place], [place] 590211 Podiatry 04/03/22 Reuben Cooper [address] [address] [place] [address] Orthopedics 04/03/22 Hayden Siegel [address] [facility] [address] Cardiology 04/03/22 Applications Packager Relationship Specialty Start Date End Date Mirella Jones, HOT DIP TINNING SUPERVISOR.[employer] [address] [place] [address], [place] [address] PCP - General Internal Medicine 09/23/19 Jl Jiménez MD [address] [address] [place], [place] [id number] Urology 04/03/22 Nik Kam [address] [place] [address] Podiatry 04/03/22 Reuben Cooper [address] [place] [address] Orthopedics 04/03/22 Hayden Siegel [address] [facility] [place] [address] Cardiology 04/03/22 Applications Packager Relationship Specialty Start Date End Date Mirella Jones HOT DIP TINNING SUPERVISOR.[employer]AKER [address] [place] [address], [place] [address] PCP - General Internal Medicine 09/23/19 Jl Jiménez MD [address] [address] [place] [address] Urology 04/03/22 Nik Kam [address] [address] [place] [address] Podiatry 04/03/22 Reuben Cooper [address] [id number] Orthopedics 04/03/22 Hayden Siegel [address] [place] [id number] Cardiology 04/03/22 Applications Packager Relationship Specialty Start Date End Date Mirella Jones APRN.[facility] [address] [place] [address] [id number] PCP - General Internal Medicine 09/23/19 Jl Jiménez MD [address] [place] [address] [id number] Urology 04/03/22 Nik Kam [address] [id number] Podiatry 04/03/22 Reuben Cooper [address] [place] [address] [id number] Orthopedics 04/03/22 Hayden Siegel [address] [place] [phone] Cardiology 04/03/22 FOR RECORDS PERTAINING TO PATIENTS WHO ARE OR HAVE BEEN ENROLLED IN A CHEMICAL DEPENDENCY/SUBSTANCEABUSE PROGRAM, SOME INFORMATION MAY BE OMITTED. This clinical summary was aggregated from multiple sources. Caution should be exercised in using it in the provision of clinical care. This summary normalizes information from multiple sources, and as a consequence, information in this document may materially change the coding, format and clinical context of patient data. In addition, data may be omitted in some cases. CLINICAL DECISIONS SHOULD BE BASED ON THE PRIMARY CLINICAL RECORDS. [facility] [id number] [facility]. provides no warranty or guarantee of the accuracy or completeness of information in this document.
[2023-04-04 15:27] LABS: Absolute Lymphocyte Count 1.52 X10^3/uL (0.83-4.51); Absolute Neutrophil Count 4.2 X10^3/uL (2.0-7.7); Basophil# 0.04 X10^3/uL; Basophil% 0.6 % (0-1); Eosinophil# 0.25 X10^3/uL; Eosinophils% 3.8 % (0-5); Hematocrit 41.6 % (40-54); Hemoglobin 13.7 g/dL (13.0-16.5); Lymphocyte # 1.52 X10^3/ul (0.83-4.51); Lymphocyte % 22.9 % (19-41); Mean Corp Hgb Conc 32.9 g/dL (32-36); Mean Corpuscular Hgb 34.8 pg (27.0-32.0); Mean Corpuscular Volume 105.6 fL (80-94); Mean Platelet Vol. 10.5 fl (6.2-12.0); Monocyte# 0.58 X10^3/uL; Monocyte% 8.7 % (0-10); NRBC Flagged by Analyzer 0 % (0-5); Neutrophil # 4.24 X10^3/uL (2.7-7.7); Neutrophil % 63.7 % (47-70); Platelet Count 181 K/mm3 (150-450); RBC Distribution Width CV 14.9 % (11.6-14.6); RBC Distribution Width SD 57.5 fl (35.1-43.9); Red Blood Count 3.94 M/mm3 (4.6-6.2); White Blood Count 6.7 K/mm3 (4.4-11.0)
[2023-04-04 16:40] LABS: ALB/GLOB Ratio 0.9 RATIO (0.9-2.4); AST(SGOT) 23 U/L (15-37); Alanine Aminotransfer ALT/SGPT 23 U/L (16-61); Albumin, Serum 3.4 g/dL (3.2-5.0); Alkaline Phosphatase 64 U/L (45-117); Anion Gap 4 (5-15); BUN 20 mg/dL (7-18); BUN/Creat Ratio 23.9 RATIO (10-20); Calcium,Total 9.9 mg/dL (8.5-10.1); Chloride 105 mmol/L (98-107); Creatinine, Serum 0.84 mg/dL (0.70-1.30); EST Glomerular Filtration Rate 95 mL/min (>60); Est Glom Filt Rate - Afr Amer 115 mL/min (>60); Globulin 3.8 g/dL (2.2-4.2); Glucose 100 mg/dL (74-106); Potassium 4.1 mmol/L (3.5-5.1); Protein, Total 7.2 g/dL (6.4-8.2); Sodium Level 139 mmol/L (136-145)
== END | disposition home or self-care (01) ==
LOC: MTLAB 11:22
PROVIDERS: PCP Nurse Practitioner Adult Health; Referring Provider Internal Medicine Rheumatology; Visit Provider Internal Medicine Rheumatology
DX: M05.79 Rheumatoid arthritis with rheumatoid factor of multiple sites without organ or systems involvement (principal); M79.7 Fibromyalgia; M48.061 Spinal stenosis, lumbar region without neurogenic claudication; Z79.899 Other long term (current) drug therapy
CPT/HCPCS: 36415; 80053; 85025

== ENCOUNTER → 2023-05-29 | Outpatient (CLI) | payer MEDICARE, OTHER, SELFPAY ==
[2023-05-29 17:40] LABS: Absolute Lymphocyte Count 1.83 X10^3/uL (0.83-4.51); Absolute Neutrophil Count 3.7 X10^3/uL (2.0-7.7); Basophil# 0.03 X10^3/uL; Basophil% 0.5 % (0-1); Eosinophil# 0.41 X10^3/uL; Eosinophils% 6.3 % (0-5); Hematocrit 40.5 % (40-54); Hemoglobin 13.4 g/dL (13.0-16.5); Lymphocyte # 1.83 X10^3/ul (0.83-4.51); Lymphocyte % 28.1 % (19-41); Mean Corp Hgb Conc 33.1 g/dL (32-36); Mean Corpuscular Hgb 35.7 pg (27.0-32.0); Mean Platelet Vol. 10.2 fl (6.2-12.0); Monocyte# 0.54 X10^3/uL; Monocyte% 8.3 % (0-10); NRBC Flagged by Analyzer 0 % (0-5); Neutrophil % 56.6 % (47-70); Platelet Count 205 K/mm3 (150-450); RBC Distribution Width CV 15.1 % (11.6-14.6); RBC Distribution Width SD 59.5 fl (35.1-43.9); Red Blood Count 3.75 M/mm3 (4.6-6.2); White Blood Count 6.5 K/mm3 (4.4-11.0)
[2023-05-29 19:11] LABS: ALB/GLOB Ratio 0.8 RATIO (0.9-2.4); AST(SGOT) 30 U/L (15-37); Alanine Aminotransfer ALT/SGPT 22 U/L (16-61); Albumin, Serum 3.2 g/dL (3.2-5.0); Alkaline Phosphatase 72 U/L (45-117); Anion Gap 7 (5-15); BUN 19 mg/dL (7-18); BUN/Creat Ratio 22.2 RATIO (10-20); Calcium,Total 12.6 mg/dL (8.5-10.1); Chloride 104 mmol/L (98-107); Creatinine, Serum 0.86 mg/dL (0.70-1.30); EST Glomerular Filtration Rate 92 mL/min (>60); Est Glom Filt Rate - Afr Amer 112 mL/min (>60); Globulin 4.1 g/dL (2.2-4.2); Glucose 93 mg/dL (74-106); Potassium 4.1 mmol/L (3.5-5.1); Protein, Total 7.3 g/dL (6.4-8.2); Sodium Level 139 mmol/L (136-145)
== END | disposition home or self-care (01) ==
PROVIDERS: PCP Nurse Practitioner Adult Health; Referring Provider Internal Medicine Rheumatology; Visit Provider Internal Medicine Rheumatology
DX: M05.79 Rheumatoid arthritis with rheumatoid factor of multiple sites without organ or systems involvement (principal); M79.7 Fibromyalgia; Z79.899 Other long term (current) drug therapy
CPT/HCPCS: 36415; 80053; 85025

== ENCOUNTER → 2023-05-31 | Outpatient (CLI) | payer MEDICARE, OTHER, SELFPAY ==
[2023-05-31 17:10] LABS: PTHIN 66.5 pg/mL (18.4-80.1)
[2023-05-31 17:16] LABS: ALB/GLOB Ratio 0.7 RATIO (0.9-2.4); AST(SGOT) 31 U/L (15-37); Alanine Aminotransfer ALT/SGPT 20 U/L (16-61); Albumin, Serum 3.1 g/dL (3.2-5.0); Alkaline Phosphatase 71 U/L (45-117); Anion Gap 6 (5-15); BUN 21 mg/dL (7-18); BUN/Creat Ratio 24.7 RATIO (10-20); Calcium,Total 9.5 mg/dL (8.5-10.1); Chloride 104 mmol/L (98-107); Creatinine, Serum 0.85 mg/dL (0.70-1.30); EST Glomerular Filtration Rate 93 mL/min (>60); Est Glom Filt Rate - Afr Amer 113 mL/min (>60); Globulin 4.3 g/dL (2.2-4.2); Glucose 100 mg/dL (74-106); Potassium 4.2 mmol/L (3.5-5.1); Protein, Total 7.4 g/dL (6.4-8.2); Sodium Level 139 mmol/L (136-145)
== END | disposition home or self-care (01) ==
LOC: MTLAB 15:20
PROVIDERS: PCP Nurse Practitioner Adult Health; Referring Provider Internal Medicine Rheumatology; Visit Provider Internal Medicine Rheumatology
DX: M05.79 Rheumatoid arthritis with rheumatoid factor of multiple sites without organ or systems involvement (principal); M79.7 Fibromyalgia; Z79.899 Other long term (current) drug therapy
CPT/HCPCS: 36415; 80053; 83970

== ENCOUNTER → 2023-07-19 | Outpatient (CLI) | payer MEDICARE, OTHER, SELFPAY ==
[2023-07-19 12:51] LABS: Absolute Lymphocyte Count 1.26 X10^3/uL (0.83-4.51); Absolute Neutrophil Count 4.9 X10^3/uL (2.0-7.7); Basophil# 0.03 X10^3/uL; Basophil% 0.4 % (0-1); Eosinophil# 0.36 X10^3/uL; Hematocrit 40.8 % (40-54); Hemoglobin 13.3 g/dL (13.0-16.5); Lymphocyte # 1.26 X10^3/ul (0.83-4.51); Lymphocyte % 17.5 % (19-41); Mean Corp Hgb Conc 32.6 g/dL (32-36); Mean Corpuscular Hgb 35.4 pg (27.0-32.0); Mean Corpuscular Volume 108.5 fL (80-94); Mean Platelet Vol. 10.6 fl (6.2-12.0); Monocyte# 0.61 X10^3/uL; Monocyte% 8.4 % (0-10); NRBC Flagged by Analyzer 0 % (0-5); Neutrophil # 4.94 X10^3/uL (2.7-7.7); Neutrophil % 68.4 % (47-70); Platelet Count 212 K/mm3 (150-450); RBC Distribution Width CV 14.7 % (11.6-14.6); RBC Distribution Width SD 58.1 fl (35.1-43.9); Red Blood Count 3.76 M/mm3 (4.6-6.2); White Blood Count 7.2 K/mm3 (4.4-11.0)
[2023-07-19 13:30] LABS: ALB/GLOB Ratio 0.9 RATIO (0.9-2.4); AST(SGOT) 27 U/L (15-37); Alanine Aminotransfer ALT/SGPT 20 U/L (16-61); Albumin, Serum 3.4 g/dL (3.2-5.0); Alkaline Phosphatase 71 U/L (45-117); Anion Gap 7 (5-15); BUN 16 mg/dL (7-18); BUN/Creat Ratio 21.9 RATIO (10-20); Calcium,Total 9.7 mg/dL (8.5-10.1); Chloride 104 mmol/L (98-107); Creatinine, Serum 0.73 mg/dL (0.70-1.30); EST Glomerular Filtration Rate 111 mL/min (>60); Est Glom Filt Rate - Afr Amer 134 mL/min (>60); Globulin 3.8 g/dL (2.2-4.2); Glucose 92 mg/dL (74-106); Potassium 4.1 mmol/L (3.5-5.1); Protein, Total 7.2 g/dL (6.4-8.2); Sodium Level 139 mmol/L (136-145)
== END | disposition home or self-care (01) ==
LOC: MTLAB 10:45
PROVIDERS: PCP Nurse Practitioner Adult Health; Referring Provider Internal Medicine Rheumatology; Visit Provider Internal Medicine Rheumatology
DX: M05.79 Rheumatoid arthritis with rheumatoid factor of multiple sites without organ or systems involvement (principal); M79.7 Fibromyalgia; Z79.899 Other long term (current) drug therapy
CPT/HCPCS: 36415; 80053; 85025

== ENCOUNTER → 2023-10-11 | Outpatient (CLI) | payer MEDICARE, OTHER, SELFPAY ==
[2023-10-11 12:17] LABS: Absolute Lymphocyte Count 1.29 X10^3/uL (0.83-4.51); Absolute Neutrophil Count 4.4 X10^3/uL (2.0-7.7); Basophil# 0.03 X10^3/uL; Basophil% 0.5 % (0-1); Eosinophil# 0.27 X10^3/uL; Eosinophils% 4.1 % (0-5); Hematocrit 39.7 % (40-54); Hemoglobin 13.2 g/dL (13.0-16.5); Lymphocyte # 1.29 X10^3/ul (0.83-4.51); Lymphocyte % 19.4 % (19-41); Mean Corp Hgb Conc 33.2 g/dL (32-36); Mean Corpuscular Hgb 35.3 pg (27.0-32.0); Mean Corpuscular Volume 106.1 fL (80-94); Mean Platelet Vol. 10.6 fl (6.2-12.0); Monocyte# 0.64 X10^3/uL; Monocyte% 9.6 % (0-10); NRBC Flagged by Analyzer 0 % (0-5); Neutrophil # 4.39 X10^3/uL (2.7-7.7); Neutrophil % 66.1 % (47-70); Platelet Count 202 K/mm3 (150-450); RBC Distribution Width CV 14.9 % (11.6-14.6); RBC Distribution Width SD 57.3 fl (35.1-43.9); Red Blood Count 3.74 M/mm3 (4.6-6.2); White Blood Count 6.6 K/mm3 (4.4-11.0)
[2023-10-11 12:40] LABS: ALB/GLOB Ratio 0.8 RATIO (0.9-2.4); AST(SGOT) 24 U/L (15-37); Alanine Aminotransfer ALT/SGPT 18 U/L (16-61); Albumin, Serum 3.2 g/dL (3.2-5.0); Alkaline Phosphatase 62 U/L (45-117); Anion Gap 4 (5-15); BUN 20 mg/dL (7-18); BUN/Creat Ratio 22.4 RATIO (10-20); Calcium,Total 9.5 mg/dL (8.5-10.1); Chloride 106 mmol/L (98-107); Creatinine, Serum 0.89 mg/dL (0.70-1.30); EST Glomerular Filtration Rate 88 mL/min (>60); Est Glom Filt Rate - Afr Amer 106 mL/min (>60); Globulin 3.9 g/dL (2.2-4.2); Glucose 99 mg/dL (74-106); Potassium 4.1 mmol/L (3.5-5.1); Protein, Total 7.1 g/dL (6.4-8.2); Sodium Level 140 mmol/L (136-145)
== END | disposition home or self-care (01) ==
LOC: MTLAB 10:25
PROVIDERS: PCP Nurse Practitioner Adult Health; Referring Provider Internal Medicine Rheumatology; Visit Provider Internal Medicine Rheumatology
DX: M05.79 Rheumatoid arthritis with rheumatoid factor of multiple sites without organ or systems involvement (principal); Z79.899 Other long term (current) drug therapy; M79.7 Fibromyalgia
CPT/HCPCS: 36415; 80053; 85025

== ENCOUNTER → 2024-01-06 | Outpatient (CLI) | payer MEDICARE, OTHER, SELFPAY ==
[2024-01-06 15:42] LABS: Absolute Lymphocyte Count 1.12 X10^3/uL (0.83-4.51); Absolute Neutrophil Count 6.1 X10^3/uL (2.0-7.7); Basophil# 0.04 X10^3/uL; Basophil% 0.5 % (0-1); Eosinophil# 0.17 X10^3/uL; Eosinophils% 2.2 % (0-5); Hematocrit 36.9 % (40-54); Hemoglobin 12.6 g/dL (13.0-16.5); Lymphocyte # 1.12 X10^3/ul (0.83-4.51); Lymphocyte % 14.3 % (19-41); Mean Corp Hgb Conc 34.1 g/dL (32-36); Mean Corpuscular Volume 105.4 fL (80-94); Mean Platelet Vol. 10.4 fl (6.2-12.0); Monocyte# 0.42 X10^3/uL; Monocyte% 5.4 % (0-10); NRBC Flagged by Analyzer 0 % (0-5); Neutrophil # 6.08 X10^3/uL (2.7-7.7); Neutrophil % 77.3 % (47-70); Platelet Count 186 K/mm3 (150-450); RBC Distribution Width CV 14.1 % (11.6-14.6); RBC Distribution Width SD 54.3 fl (35.1-43.9); White Blood Count 7.9 K/mm3 (4.4-11.0)
[2024-01-06 16:16] LABS: AST(SGOT) 30 U/L (15-37); Alanine Aminotransfer ALT/SGPT 24 U/L (16-61); Albumin, Serum 3.5 g/dL (3.2-5.0); Alkaline Phosphatase 64 U/L (45-117); Anion Gap 8 (5-15); BUN 18 mg/dL (7-18); BUN/Creat Ratio 20.6 RATIO (10-20); Calcium,Total 9.1 mg/dL (8.5-10.1); Chloride 104 mmol/L (98-107); Creatinine, Serum 0.87 mg/dL (0.70-1.30); EST Glomerular Filtration Rate 90 mL/min (>60); Est Glom Filt Rate - Afr Amer 109 mL/min (>60); Globulin 3.5 g/dL (2.2-4.2); Glucose 87 mg/dL (74-106); Potassium 3.9 mmol/L (3.5-5.1); Sodium Level 140 mmol/L (136-145)
== END | disposition home or self-care (01) ==
LOC: MTLAB 12:36
PROVIDERS: PCP Nurse Practitioner Adult Health; Referring Provider Internal Medicine Rheumatology; Visit Provider Internal Medicine Rheumatology
DX: M05.79 Rheumatoid arthritis with rheumatoid factor of multiple sites without organ or systems involvement (principal); M79.7 Fibromyalgia; Z79.899 Other long term (current) drug therapy
CPT/HCPCS: 36415; 80053; 85025

== ENCOUNTER → 2024-04-21 | Outpatient (CLI) | payer MEDICARE, OTHER, SELFPAY ==
[2024-04-21 12:37] LABS: Absolute Lymphocyte Count 1.04 X10^3/uL (0.83-4.51); Absolute Neutrophil Count 6.6 X10^3/uL (2.0-7.7); Basophil# 0.03 X10^3/uL; Basophil% 0.4 % (0-1); Eosinophil# 0.25 X10^3/uL; Hematocrit 37.7 % (40-54); Hemoglobin 12.8 g/dL (13.0-16.5); Lymphocyte # 1.04 X10^3/ul (0.83-4.51); Lymphocyte % 12.7 % (19-41); Mean Corpuscular Hgb 35.9 pg (27.0-32.0); Mean Corpuscular Volume 105.6 fL (80-94); Mean Platelet Vol. 10.3 fl (6.2-12.0); Monocyte# 0.26 X10^3/uL; Monocyte% 3.2 % (0-10); NRBC Flagged by Analyzer 0 % (0-5); Neutrophil # 6.57 X10^3/uL (2.7-7.7); Neutrophil % 80.1 % (47-70); POSITIVE MORPHOLOGY YES; Platelet Count 240 K/mm3 (150-450); RBC Distribution Width CV 14.7 % (11.6-14.6); RBC Distribution Width SD 56.7 fl (35.1-43.9); Red Blood Count 3.57 M/mm3 (4.6-6.2); White Blood Count 8.2 K/mm3 (4.4-11.0)
[2024-04-21 12:47] LABS: ALB/GLOB Ratio 0.8 RATIO (0.9-2.4); AST(SGOT) 37 U/L (15-37); Alanine Aminotransfer ALT/SGPT 32 U/L (16-61); Albumin, Serum 3.1 g/dL (3.2-5.0); Alkaline Phosphatase 72 U/L (45-117); Anion Gap 5 (5-15); BUN 20 mg/dL (7-18); BUN/Creat Ratio 21.2 RATIO (10-20); Calcium,Total 9.9 mg/dL (8.5-10.1); Chloride 103 mmol/L (98-107); Creatinine, Serum 0.94 mg/dL (0.70-1.30); EST Glomerular Filtration Rate 82 mL/min (>60); Est Glom Filt Rate - Afr Amer 99 mL/min (>60); Glucose 106 mg/dL (74-106); Potassium 3.9 mmol/L (3.5-5.1); Protein, Total 7.1 g/dL (6.4-8.2); Sodium Level 140 mmol/L (136-145)
[2024-04-21 13:01] LABS: Differential Indicated SCAN CRITERIA MET
[2024-04-21 13:44] LABS: Atypical Lymphocyte RARE %; Differential Comment SCANNED
== END | disposition home or self-care (01) ==
LOC: MTLAB 09:53
PROVIDERS: PCP Nurse Practitioner Adult Health; Referring Provider Internal Medicine Rheumatology; Visit Provider Internal Medicine Rheumatology
DX: M05.79 Rheumatoid arthritis with rheumatoid factor of multiple sites without organ or systems involvement (principal); Z79.899 Other long term (current) drug therapy; M79.7 Fibromyalgia
CPT/HCPCS: 36415; 80053; 85025

== ENCOUNTER → 2024-07-13 | Outpatient (CLI) | payer MEDICARE, OTHER, SELFPAY ==
[2024-07-13 12:37] LABS: Absolute Lymphocyte Count 1.55 X10^3/uL (0.83-4.51); Absolute Neutrophil Count 5.1 X10^3/uL (2.0-7.7); Basophil# 0.04 X10^3/uL; Basophil% 0.5 % (0-1); Eosinophil# 0.39 X10^3/uL; Hematocrit 33.6 % (40-54); Hemoglobin 11.3 g/dL (13.0-16.5); Lymphocyte # 1.55 X10^3/ul (0.83-4.51); Mean Corp Hgb Conc 33.6 g/dL (32-36); Monocyte% 7.7 % (0-10); NRBC Flagged by Analyzer 0 % (0-5); Neutrophil # 5.14 X10^3/uL (2.7-7.7); Neutrophil % 66.4 % (47-70); Platelet Count 223 K/mm3 (150-450); RBC Distribution Width CV 14.6 % (11.6-14.6); RBC Distribution Width SD 56.7 fl (35.1-43.9); Red Blood Count 3.14 M/mm3 (4.6-6.2); White Blood Count 7.8 K/mm3 (4.4-11.0)
[2024-07-13 12:43] LABS: AST(SGOT) 24 U/L (<=37); Alanine Aminotransfer ALT/SGPT 11 U/L (<=46); Albumin, Serum 3.6 g/dL (3.4-4.8); Alkaline Phosphatase 77 U/L (40-129); Anion Gap 11 (5-15); BUN 18 mg/dL (4-19); BUN/Creat Ratio 24.1 RATIO (10-20); Calcium,Total 9.8 mg/dL (7.6-11.0); Chloride 100 mmol/L (98-108); Creatinine, Serum 0.75 mg/dL (0.70-1.20); EST Glomerular Filtration Rate 92 (>60); Globulin 3.8 g/dL (2.2-4.2); Glucose 101 mg/dL (70-99); Protein, Total 7.4 g/dL (5.9-8.4); Sodium Level 139 mmol/L (133-145); Total Bilirubin 0.59 mg/dL (0.00-1.30)
== END | disposition home or self-care (01) ==
LOC: MTLAB 10:42
PROVIDERS: PCP Nurse Practitioner Adult Health; Referring Provider Internal Medicine Rheumatology; Visit Provider Internal Medicine Rheumatology
DX: M05.79 Rheumatoid arthritis with rheumatoid factor of multiple sites without organ or systems involvement (principal); M79.7 Fibromyalgia; Z79.899 Other long term (current) drug therapy
CPT/HCPCS: 36415; 80053; 85025

== ENCOUNTER 2024-11-25 12:43 | Outpatient (CLI) | payer MEDICARE, OTHER, SELFPAY ==
[2024-11-25 15:22] LABS: Hematocrit 32.3 % (40-54); Hemoglobin 10.6 g/dL (13.0-16.5); Immature Granulocytes Count 0.030 X10^3/uL (0.0-0.0); Mean Corp Hgb Conc 32.8 g/dL (32-36); Mean Corpuscular Volume 102.5 fL (80-94); Mean Platelet Vol. 10.5 fl (6.2-12.0); NRBC Flagged by Analyzer 0 % (0-5); Platelet Count 266 K/mm3 (150-450); RBC Distribution Width CV 13.8 % (11.6-14.6); RBC Distribution Width SD 50.9 fl (35.1-43.9); Red Blood Count 3.15 M/mm3 (4.6-6.2); White Blood Count 8.2 K/mm3 (4.4-11.0)
[2024-11-25 15:42] LABS: AST(SGOT) 25 U/L (<=37); Alanine Aminotransfer ALT/SGPT 13 U/L (<=46); Albumin, Serum 3.6 g/dL (3.4-4.8); Alkaline Phosphatase 79 U/L (40-129); Anion Gap 11 (5-15); BUN 17 mg/dL (4-19); BUN/Creat Ratio 17.8 RATIO (10-20); Calcium,Total 9.6 mg/dL (7.6-11.0); Carbon Dioxide 26.9 mmol/L (21.0-32.0); Chloride 100 mmol/L (98-108); Globulin 3.8 g/dL (2.2-4.2); Glucose 96 mg/dL (70-99); Potassium 4.1 mmol/L (3.3-5.1)
== END 2024-11-25 23:59 | disposition home or self-care (01) ==
PROVIDERS: PCP Nurse Practitioner Adult Health; Referring Provider Internal Medicine Rheumatology; Visit Provider Internal Medicine Rheumatology
DX: M05.79 Rheumatoid arthritis with rheumatoid factor of multiple sites without organ or systems involvement (principal); M79.7 Fibromyalgia; M17.0 Bilateral primary osteoarthritis of knee; M48.061 Spinal stenosis, lumbar region without neurogenic claudication; Z79.899 Other long term (current) drug therapy
CPT/HCPCS: 36415; 80053; 85025

== ENCOUNTER → 2025-02-15 | Outpatient (CLI) | payer MEDICARE, OTHER, SELFPAY ==
[2025-02-15 12:30] LABS: Hematocrit 36.4 % (40-54); Hemoglobin 11.9 g/dL (13.0-16.5); Immature Granulocytes Count 0.030 X10^3/uL (0.0-0.0); Mean Corp Hgb Conc 32.7 g/dL (32-36); Mean Corpuscular Volume 104.9 fL (80-94); Mean Platelet Vol. 10.7 fl (6.2-12.0); NRBC Flagged by Analyzer 0 % (0-5); Platelet Count 211 K/mm3 (150-450); RBC Distribution Width CV 16.5 % (11.6-14.6); RBC Distribution Width SD 64.2 fl (35.1-43.9); Red Blood Count 3.47 M/mm3 (4.6-6.2); White Blood Count 8.0 K/mm3 (4.4-11.0)
[2025-02-15 12:43] LABS: AST(SGOT) 32 U/L (<=37); Alanine Aminotransfer ALT/SGPT 18 U/L (<=46); Albumin, Serum 3.8 g/dL (3.4-4.8); Alkaline Phosphatase 76 U/L (40-129); Anion Gap 10 (5-15); BUN 18 mg/dL (4-19); BUN/Creat Ratio 20.4 RATIO (10-20); Calcium,Total 9.9 mg/dL (7.6-11.0); Carbon Dioxide 26.5 mmol/L (21.0-32.0); Chloride 101 mmol/L (98-108); Globulin 3.6 g/dL (2.2-4.2); Glucose 92 mg/dL (70-99); Potassium 4.0 mmol/L (3.3-5.1)
== END | disposition home or self-care (01) ==
LOC: MTLAB 10:18
PROVIDERS: PCP Nurse Practitioner Adult Health; Referring Provider Internal Medicine Rheumatology; Visit Provider Internal Medicine Rheumatology
DX: M05.79 Rheumatoid arthritis with rheumatoid factor of multiple sites without organ or systems involvement (principal); Z79.899 Other long term (current) drug therapy
CPT/HCPCS: 36415; 80053; 85025